=== PATIENT | female | born 1945 | race African-American/Black ===

== ENCOUNTER 2017-04-05 18:05 | Inpatient (IN) ==
[2017-04-05] MEDS ORDERED: cloNIDine 0.1 MG TABLET PO STA (19:44)
[2017-04-05] MEDS ORDERED: ALBUTEROL 2.5 MG/3 ML NEB RESP TX STA ×2 (19:44→21:32)
[2017-04-05] MEDS ORDERED: SODIUM CHLORIDE 0.9% 500 ML IV STA (19:44)
[2017-04-05] MEDS ORDERED: DEXAMETHASONE 4 MG/1 ML VIAL IM STA (19:44)
--- NOTE | 2017-04-05 20:01 | Emergency Department Note ---
Isabella Ohara Gwan, am scribing for, and in the presence of, Delon La MD 19:52. Abhinav Ohara Robert M, MD, personally performed the services described in this documentation, ascribed by Evelio Mason in my presence, and it is both accurate and complete . Arrival - Arrival Chief Complaint: Shortness of Breath Stated Complaint: asthma/wheeezing/SOB ED Nursing Triage Note: HX ASTHMA, COUGH ONSET SATURDAY, SOB WITH EXP WHEEZES BILATERALLY Mode of Arrival: Wheelchair Limitations: No Limitations Source: Patient, Old Records Reviewed, RN Notes Reviewed Time Seen by Provider: 04/05/17 19:41 - History of Present Illness HPI Narrative: Patient is a 71 y/o black female who presents to the ED for further evaluation of SOB, cough and wheezing with an onset today. Upon entry into the exam room, it is noted that the pt speaks in 2-3 word sentences. Patient has a PMHx of asthma and HTN. She stated that she was present at her Pulmologist office Dr. Ramos office today when her sxs became worse. She was then prompted to report to ED if she received no relief. Patient confirmed that her PCP is Dr. Pratt, that she has been compliant with BP medication and that her cough has an onset of 3 days ago. She denies any chest pain or having a fever. No other problems/ complaints reported in ED. Onset (ago): hour(s) Consistency: constant Severity: moderate Allergies/Adverse Reactions: Allergies Allergy/AdvReac Type Severity Reaction Status Date / Time doxycycline Allergy Mild ITCHING Verified 04/05/17 18:32 Home Medications: Home Medications Medication Instructions Recorded Confirmed Type Albuterol Sulfate [Proair 2 puff INH Q4HR 08/22/15 04/05/17 History Respiclick] Brimonidine/Timolol Oph Soln 1 drop BOTH EYES BID 08/22/15 04/05/17 History [Combigan] Buspirone HCl 15 mg PO BID 08/22/15 04/05/17 History Isosorbide Mononitrate [Isosorbide 30 mg PO BID 08/22/15 04/05/17 History Mononitrate ER] Montelukast Tab [Singulair Tab] 10 mg PO QPM 08/22/15 04/05/17 History cloNIDine HCl [Clonidine HCl] 0.1 mg PO BID 08/22/15 04/05/17 History hydroCHLOROthiazide 12.5 mg PO DAILY 08/22/15 04/05/17 History [Hydrochlorothiazide] Aspirin [Ecotrin] 81 mg PO DAILY 10/01/15 04/05/17 History Albuterol/Ipratropium Neb [Duoneb] 3 ml RESP TX RT Q6H nebulization 10/03/15 Rx solution Sertraline HCl 100 mg PO BID 10/21/15 04/05/17 History Quinapril [Accupril] 20 mg PO DAILY 06/24/16 04/05/17 History amLODIPine [Norvasc] 5 mg PO DAILY 06/24/16 04/05/17 History ACETAMIN/diphenhydrAMIN 500-25 1 tablet PO BEDTIME PRN 07/13/16 04/05/17 History [Tylenol PM] Acetaminophen 500 mg PO Q6H PRN 07/26/16 04/05/17 History diphenhydrAMINE HCl 25 mg PO BEDTIME 07/26/16 04/05/17 History [diphenhydrAMINE Tab] Dexlansoprazole [Dexilant] 60 mg PO DAILY 04/05/17 04/05/17 History Duloxetine HCl [Duloxetine] 30 mg PO BEDTIME 04/05/17 04/05/17 History Gabapentin [Gabapentin] 600 mg PO TID 04/05/17 04/05/17 History Levothyroxine Sodium 100 mcg PO QAM 04/05/17 04/05/17 History Oxycodone HCl/Acetaminophen 1 each PO BID PRN 04/05/17 04/05/17 History [Oxycodon-Acetaminophen 7.5-325] Review of System - Review of System 12 point system: reviewed and no additional remarkable complaints except as stated - Review of System Constitutional: Absent: chills, diaphoresis, fever Eyes: Absent: discharge, pain Head/Ears/Nose/Throat: Absent: earache Respiratory: Present: as per HPI, cough, wheezing, other (sob) Cardiovascular: Absent: chest pain, palpitations Gastrointestinal: Absent: abdominal pain, nausea, vomiting, diarrhea Genitourinary female: Absent: dysuria Musculoskeletal: Absent: arm pain, back pain, leg pain, neck pain Skin: Absent: rash Medical,Surgical,& Family Hx - Medical History Cardio: History of: Hypertension Psychological: History of: Anxiety Disorders HEENT: History of: Eye Problem (FLOATERS) Endocrine: History of: Thyroid Disorder Rheumatology: History of;: Rheumatoid Arthritis Respiratory: History of: Asthma Gastrointestinal: History of: GERD Musculoskeletal: History of: Back/Neck Problems, Herniated Disk - Surgical History Cardiac Surgeries: Sugical HX of: Cardiac Catheterization Abdominal Surgeries: Surgical HX of: Appendectomy, Cholecystectomy, Colonoscopy , EGD Reproductive Surgeries: Surgical HX of;: Hysterectomy Orthopedic Surgeries: Patient denies;: Orthopedic Surgery - Social History Smoking Status: Never smoker Exam Vital Signs: Vital Signs Temperature 98.1 F 04/05/17 18:27 Pulse Rate 70 04/05/17 18:27 Respiratory Rate 36 H 04/05/17 18:27 Blood Pressure 185/79 04/05/17 18:27 O2 Sat by Pulse Oximetry 96 04/05/17 18:27 - General General appearance: alert, in no apparent distress, other (patient speaks in 2- 3 word sentences) - Head Head exam: Present: atraumatic, normocephalic - Eye Eye exam: Present: normal appearance, PERRL, EOMI - ENT ENT exam: Present: normal exam, normal oropharynx, mucous membranes moist, TM's normal bilaterally, normal external ear exam - Neck Neck exam: Present: full ROM, trachea midline. Absent: tenderness - Chest Chest inspection: Present: symmetric chest wall rise. Absent: tenderness - Respiratory Respiratory exam: Present: wheezes (diffuse wheezes bilaterally), other ( patient speaks in 2-3 word sentences; no retraction noted) - Cardiovascular Cardiovascular exam: Present: regular rate, normal rhythm, normal heart sounds. Absent: murmur, rubs - Neurological Exam Neurological exam: Present: alert, oriented X3, CN II-XII intact. Absent: motor sensory deficit - Psychiatric Psychiatric exam: Present: normal affect, normal mood - Skin Skin exam: Present: warm, dry, intact, normal color Results - Labs CBC & BMP: 04/05/17 20:10 04/05/17 20:10 Lab Results: I have reviewed the patients labs - Diagnostic Findings Procedure: Chest x-ray: report reviewed by me Disposition Clinical Impression: Asthma with exacerbation, Uncontrolled hypertension Case discussed with: patient Disposition: Still a Patient Condition: Stable Time of Disposition: 21:01
[2017-04-05] MEDS ORDERED: DEXAMETHASONE 4 MG/1 ML VIAL ONE (20:02)
--- NOTE | 2017-04-05 20:05 | XRay Report ---
XR chest 1V portable Indication: Chest pain/shortness of breath. Comparison: Chest x-ray 07/30/2016. Technique: Portable AP chest was performed. Findings: The heart size appears within normal limits. The mediastinal contour suggests little change from comparison study. Minimally prominent pulmonary arteries within the central chest are suggested. Lungs are clear. Bones and soft tissues demonstrate no evidence of acute pathology. Impression: 1. Pulmonary arteries may be minimally prominent. Overall appearance of the chest suggests little change. No active process is demonstrated. 04/05/2017 7:57 PM PROCEDURE INTERPRETED AT [facility] DEPARTMENT OF RADIOLOGY Final Report Signed by: Dr. Rufus La
[2017-04-05] MEDS ORDERED: cloNIDine 0.1 MG TABLET ONE (20:23)
[2017-04-05 20:36] LABS: Basophils % 0.5 % (0.0-0.8); Eosinophils # 0.6 10*3/uL (0.0-0.87); Eosinophils % 7.2 % (0.00-10.9); Hematocrit 36.9 VOL% (35.7-47.0); Hemoglobin 11.2 GM/DL (12.0-16.0); Immature Granulocytes % 0.4 %; Immature Granulocytes Absolute 0.03 #; Lymphocytes # 1.4 10*3/uL (1.4-4.0); Lymphocytes % 17.4 % (21.3-54.2); Mean Corpuscular HGB Conc 30.4 GM/DL (32-36); Mean Corpuscular Hemoglobin 25 PG (27-34); Mean Corpuscular Volume 83.5 FL (87-102); Mean Platelet Volume 10.3 FL (9.6-12.0); Monocytes # 0.7 10*3/uL (0.11-0.8); Monocytes % 8.7 % (1.7-12.7); Neutrophils # 5.4 10*3/uL (1.4-7.4); Neutrophils % 65.8 % (38.7-73.9); Platelet Count 311 T/CUMM (130-400); Red Blood Count 4.42 MC/CUMM (3.8-5.5); Red Cell Distribution Width 15.2 % (9.3-17.3); White Blood Count 8.2 T/CUMM (4-12)
[2017-04-05 20:43] LABS: Calcium 9.1 MG/DL (8.5-10.1); Magnesium 2.2 MG/DL (1.8-2.4); Osmolality,Calculated 280.3 MOS/KG (273-304); Potassium 4.2 MMOL/L (3.5-5.1)
--- NOTE | 2017-04-05 22:01 | Hospitalist History & Physical ---
Assessment and Plan (1) Asthma with exacerbation Status: Acute Assessment and plan: Ongoing for several days with marked dyspnea but is continuous Continue steroids with prednisone as she can take p.o. Scheduled albuterol nebulizer every 4 hours, albuterol MDI every 4 hours to be given in between nebulized treatments as needed No indication for antibiotics, chest x-ray is clear and she has no fever Continue home Symbicort and Singulair Monitor on pulse oximetry and telemetry Current Visit: Yes (2) Hypothyroidism Status: Acute Assessment and plan: Continue home levothyroxine Current Visit: Yes (3) Arthritis Status: Acute Assessment and plan: Continue home Percocet Current Visit: Yes (4) GERD without esophagitis Status: Acute Assessment and plan: Continue home Dexilant Current Visit: No (5) Depression Status: Acute Assessment and plan: Continue home Zoloft, BuSpar, Cymbalta Current Visit: No (6) Uncontrolled hypertension Status: Acute Assessment and plan: Requires a lot of medications at home: HCTZ, clonidine, Norvasc, quinapril, ISMN and she reports compliance with all these medications although she has not yet taken her evening doses Continue home medications, hydralazine IV as needed for spikes in blood pressure Expect that her relative hypertension is secondary to the asthma exacerbation and anxiety Current Visit: Yes History of Present Illness Chief complaint: Shortness of breath History of present illness: Ms. Recinos is a 71 year old female with history of asthma, hypertension, depression, GERD, hypothyroidism the presented with a chief complaint of shortness of breath. Onset sudden. Duration since Saturday. Associated with productive cough, wheezing. Shortness of breath worse with exertion, improved with her home albuterol inhaler. She presented for care today because her symptoms have been progressively worse. When she arrived in the [facility] emergency department she was markedly tachypneic and has improved with nebulizer and dexamethasone, she is gone from speaking 2 word sentences to fluid speech at this time. She endorses compliance of her Symbicort and hypertension meds which were reviewed. Her primary care provider is Dr. Carroll and her mechanical apprentice is Dr. Ramos, both of which she has seen recently. I have reviewed the workup performed in the emergency department including lab and imaging data. I discussed her case with emergency department providers. Home Medications Medication Instructions Recorded Confirmed Type Albuterol Sulfate [Proair 2 puff INH Q4HR 08/22/15 04/05/17 History Respiclick] Brimonidine/Timolol Oph Soln 1 drop BOTH EYES BID 08/22/15 04/05/17 History [Combigan] Buspirone HCl 15 mg PO BID 08/22/15 04/05/17 History Isosorbide Mononitrate [Isosorbide 30 mg PO BID 08/22/15 04/05/17 History Mononitrate ER] Montelukast Tab [Singulair Tab] 10 mg PO QPM 08/22/15 04/05/17 History cloNIDine HCl [Clonidine HCl] 0.1 mg PO BID 08/22/15 04/05/17 History hydroCHLOROthiazide 12.5 mg PO DAILY 08/22/15 04/05/17 History [Hydrochlorothiazide] Aspirin [Ecotrin] 81 mg PO DAILY 10/01/15 04/05/17 History Albuterol/Ipratropium Neb [Duoneb] 3 ml RESP TX RT Q6H nebulization 10/03/15 Rx solution Sertraline HCl 100 mg PO BID 10/21/15 04/05/17 History Quinapril [Accupril] 20 mg PO DAILY 06/24/16 04/05/17 History amLODIPine [Norvasc] 5 mg PO DAILY 06/24/16 04/05/17 History ACETAMIN/diphenhydrAMIN 500-25 1 tablet PO BEDTIME PRN 07/13/16 04/05/17 History [Tylenol PM] Acetaminophen 500 mg PO Q6H PRN 07/26/16 04/05/17 History diphenhydrAMINE HCl 25 mg PO BEDTIME 07/26/16 04/05/17 History [diphenhydrAMINE Tab] Dexlansoprazole [Dexilant] 60 mg PO DAILY 04/05/17 04/05/17 History Duloxetine HCl [Duloxetine] 30 mg PO BEDTIME 04/05/17 04/05/17 History Gabapentin [Gabapentin] 600 mg PO TID 04/05/17 04/05/17 History Levothyroxine Sodium 100 mcg PO QAM 04/05/17 04/05/17 History Oxycodone HCl/Acetaminophen 1 each PO BID PRN 04/05/17 04/05/17 History [Oxycodon-Acetaminophen 7.5-325] Allergies Allergy/AdvReac Type Severity Reaction Status Date / Time doxycycline Allergy Mild ITCHING Verified 04/05/17 18:32 Medical,Surgical,& Family Hx - Medical History Cardio: History of: Hypertension Psychological: History of: Anxiety Disorders HEENT: History of: Eye Problem (FLOATERS) Endocrine: History of: Thyroid Disorder Rheumatology: History of;: Rheumatoid Arthritis Respiratory: History of: Asthma Gastrointestinal: History of: GERD Musculoskeletal: History of: Back/Neck Problems, Herniated Disk - Surgical History Cardiac Surgeries: Sugical HX of: Cardiac Catheterization Abdominal Surgeries: Surgical HX of: Appendectomy, Cholecystectomy, Colonoscopy , EGD Reproductive Surgeries: Surgical HX of;: Hysterectomy Orthopedic Surgeries: Patient denies;: Orthopedic Surgery - Family History Family History: Reports;: Family Hypertension (Mother) - Social History Smoking Status: Never smoker Have you smoked in the last 12 months: No Frequency of Alcohol Use: None Type of Drug Use: None Marital Status: Single Lives With:: Alone Functional capacity: uses cane/walker (Arthritis knees) Review of systems: - Constitutional Constitutional: Absent: chills, fatigue, fever(s), night sweats, weight loss - EENT Eyes: Absent: blurry vision Ears: Absent: decreased hearing, ear pain Nose, mouth and throat: Present: nasal congestion, sore throat - Cardiovascular Cardiovascular: Present: Dyspnea on exertion, edema absent: chest pain at rest, chest pain with activity, orthopnea, palpitations - Respiratory Respiratory: Present: Productive cough, dyspnea, wheezing absent: Hemoptysis - Gastrointestinal Gastrointestinal: Absent: abdominal pain, constipation, diarrhea, dysphagia, hematemesis, hematochezia, melena, nausea, vomiting - Genitourinary Genitourinary: Absent: difficulty urinating, dysuria, hematuria - Musculoskeletal Musculoskeletal: Present: Arthritis in knees - Neurological Neurological: Absent: confusion, dizziness, focal weakness, headache(s), numbness, paresthesias, syncope - Psychiatric Psychiatric: Present: Depression, anxiety - Endocrine Endocrine: Absent: cold intolerance, heat intolerance, polydipsia, polyuria - Hematologic/Lymphatic Hematologic/Lymphatic: Absent: easy bleeding, easy bruising, lymphadenopathy Exam - Constitutional Vitals: Period Temp Pulse Resp BP Sys/Valencia Pulse Ox Last 24 Hr 98.1 F-98.1 F 60-70 17-36 185-185/79-79 96-100 General appearance: morbidly obese, other (Middle-aged -[place] female sitting up in stretcher, pleasant cooperative) Exam: - Eye Eye exam: Present: EOMI. Absent: conjunctival injection, scleral icterus Pupils: Present: IDA - ENT ENT exam: Present: normal external ear exam, normal oropharynx - Expanded ENT Exam Mouth exam: Present: moist - Neck Neck exam: Present: normal inspection. Absent: lymphadenopathy, thyromegaly - Respiratory Respiratory exam: Present: Diffuse expiratory wheezing. Absent: accessory muscle use, rales, rhonchi - Cardiovascular Cardiovascular exam: Present: regular rate and rhythm. Absent: diastolic murmur , systolic murmur - Expanded Cardiovascular Exam Peripheral pulses: 2+: posterior tibialis (L), posterior tibialis (R) - GI/Abdominal GI/Abdominal exam: Present: normal bowel sounds, soft. Absent: distended, hyperactive bowel sounds, hypoactive bowel sounds, organomegaly, tenderness, rebound - Extremities Exam Extremities exam: Present: Bilateral lower extremity pitting edema - Neurological Exam Neurological exam: Present: alert, oriented X3, CN II-XII intact. Absent: motor sensory deficit - Psychiatric Psychiatric exam: Present: normal affect - Skin Skin exam: Present: warm, dry. Absent: diaphoretic, rash Results - Labs CBC & BMP: 04/05/17 20:10 04/05/17 20:10 - Diagnostic Findings Procedure: Chest x-ray: report reviewed by me
[2017-04-06] MEDS ORDERED: hydrALAZINE 20 MG/1 ML VIAL IV PRN (00:04)
[2017-04-06] MEDS ORDERED: NON-FORMULARY MEDICATION (Albuterol Sulfate [Proair Respiclick] 2 PUFF) INH SCH (00:04)
[2017-04-06] MEDS ORDERED: predniSONE 20 MG TABLET PO ONE (00:04)
[2017-04-06] MEDS ORDERED: ACETAMINOPHEN 325 MG TABLET PO PRN (00:04)
[2017-04-06] MEDS ORDERED: guaiFENesin/DM ER 600-30 MG TABLET PO PRN (00:04)
[2017-04-06] MEDS: busPIRone 15 MG TABLET PO SCH ×3 (00:41→20:09)
[2017-04-06] MEDS: GABAPENTIN 300 MG CAPSULE PO SCH ×4 (00:41→20:08)
[2017-04-06] MEDS: ISOSORBIDE MONONITRATE 30 MG TABLET PO SCH ×3 (00:41→20:09)
[2017-04-06] MEDS: ENOXAPARIN 40 MG/0.4 ML SYRINGE SUBCUT SCH (01:02)
[2017-04-06] MEDS: DULoxetine 30 MG CAPSULE PO SCH ×2 (01:02→20:08)
[2017-04-06] MEDS: ALBUTEROL 2.5 MG/3 ML NEB RESP TX SCH ×7 (03:10→23:10)
[2017-04-06] MEDS: QUINAPRIL 20 MG TABLET PO SCH (09:21)
[2017-04-06] MEDS: BRIMONIDINE/TIMOLOL OPH SOLN 5 ML BOTTLE BOTH EYES SCH ×2 (09:22→20:09)
[2017-04-06] MEDS: LEVOTHYROXINE 100 MCG TABLET PO SCH (09:24)
[2017-04-06] MEDS: hydroCHLOROthiazide 12.5 MG CAPSULE PO SCH (09:24)
[2017-04-06] MEDS: amLODIPine 5 MG TABLET PO SCH (09:25)
[2017-04-06] MEDS: cloNIDine 0.1 MG TABLET PO SCH ×2 (09:25→20:08)
[2017-04-06] MEDS: predniSONE 20 MG TABLET PO SCH (09:26)
[2017-04-06] MEDS: PANTOPRAZOLE 40 MG TABLET PO SCH (09:27)
[2017-04-06] MEDS: SERTRALINE 100 MG TABLET PO SCH ×2 (09:31→20:09)
[2017-04-06] MEDS: BUDESONIDE/FORMOTEROL 160-4.5 INHALER 6 GM INH SCH ×2 (09:50→20:08)
[2017-04-06] MEDS: oxyCODONE/ACETAMINOPHEN 5-325 MG TABLET PO PRN ×2 (09:50→18:27)
--- NOTE | 2017-04-06 15:05 | Hospitalist Progress Note ---
Assessment and Plan (1) Status asthmaticus Status: Acute Assessment and plan: Patient is still was wheezing at this time but will continue beta agonist ipratropium bromide and systemic steroids. This possible association of lower respiratory infection most likely typical. Dissection was started yesterday we will continue. Current Visit: Yes Qualifiers: Asthma severity: severe persistent Qualified Code(s): J45.52 - Severe persistent asthma with status asthmaticus (2) Depression Status: Acute Assessment and plan: Patient is using Zoloft, BuSpar and Cymbalta at home. Those will continue in the hospital Current Visit: No Qualifiers: Depression Type: major depressive disorder Major depression recurrence: recurrent Active/Remission status: currently active Major depression episode severity: severe Psychotic features: without psychotic features Qualified Code(s): F33.2 - Major depressive disorder, recurrent severe without psychotic features (3) Uncontrolled hypertension Status: Acute Assessment and plan: Dramatically better today. Continue antihypertensives Current Visit: Yes (4) Hypothyroidism Status: Acute Current Visit: Yes (5) Arthritis Status: Acute Assessment and plan: Patient has been using Percocet and will continue today Current Visit: Yes (6) Chronic sinusitis Status: Acute Assessment and plan: Continue doxycycline patient will need addition of Zyrtec 10 mg daily and fluticasone nasal 1 spray to each nostril daily. Current Visit: Yes Hospitalist: Subjective Interval history: Patient has been seen interviewed and examined and chart has been reviewed. Admitted overnight with status asthmaticus. Also been complaining of a lot of sinus congestion suggesting possibility of environmental allergens causing her problems. Denies any fevers or chills at this time. She does have a cough occasionally. Patient was admitted initially because of suggestion of lower respiratory infection and they were unable to break her asthmatic attack. She still does have wheezing bilaterally Exam - Constitutional Vitals: Period Temp Pulse Resp BP Sys/Valencia Pulse Ox Last 24 Hr 97.7 F-98.6 F 55-82 14-18 127-149/60-99 95-100 General appearance: over weight - Head Head exam: Present: normocephalic, atraumatic - Eye Eye exam: Present: EOMI Pupils: Present: IDA - ENT ENT exam: Present: normal exam - Neck Neck exam: Present: normal inspection, other (No stridor) - Respiratory Respiratory exam: Present: other (Patient does have bilateral wheezing from mid to end expiration. There is some associated crackles especially in the left lower lung [place]) - Cardiovascular Cardiovascular exam: Present: regular rate and rhythm - GI/Abdominal GI/Abdominal exam: Present: normal bowel sounds, soft - Back Exam Back exam: Present: normal inspection - Neurological Exam Neurological exam: Present: alert, oriented X3, CN II-XII intact - Psychiatric Psychiatric exam: Present: normal affect, normal mood - Skin Skin exam: Present: normal color, warm, dry Results - Labs CBC & BMP: 04/05/17 20:10 04/05/17 20:10 Lab Results: I have reviewed the past 24 hour labs
[2017-04-06] MEDS ORDERED: CETIRIZINE 10 MG TABLET PO PRN (15:09)
[2017-04-06] MEDS: MONTELUKAST 10 MG TABLET PO SCH (20:09)
[2017-04-06] MEDS: TRAVOPROST 0.004% OPH SOLN 2.5 ML BOTTLE BOTH EYES SCH (20:09)
[2017-04-07] MEDS: ENOXAPARIN 40 MG/0.4 ML SYRINGE SUBCUT SCH (00:24)
[2017-04-07] MEDS: ALBUTEROL 2.5 MG/3 ML NEB RESP TX SCH ×5 (03:00→19:03)
[2017-04-07] MEDS: BUDESONIDE/FORMOTEROL 160-4.5 INHALER 6 GM INH SCH ×2 (09:11→20:12)
[2017-04-07] MEDS: QUINAPRIL 20 MG TABLET PO SCH (09:12)
[2017-04-07] MEDS: FLUTICASONE 50 MCG NASAL SPRAY 16 GM BOTTLE BOTH NARES SCH (09:12)
[2017-04-07] MEDS: predniSONE 20 MG TABLET PO SCH (09:13)
[2017-04-07] MEDS: cloNIDine 0.1 MG TABLET PO SCH ×2 (09:13→20:12)
[2017-04-07] MEDS: GABAPENTIN 300 MG CAPSULE PO SCH ×3 (09:13→20:11)
[2017-04-07] MEDS: SERTRALINE 100 MG TABLET PO SCH ×2 (09:14→20:12)
[2017-04-07] MEDS: PANTOPRAZOLE 40 MG TABLET PO SCH (09:14)
[2017-04-07] MEDS: LEVOTHYROXINE 100 MCG TABLET PO SCH (09:14)
[2017-04-07] MEDS: busPIRone 15 MG TABLET PO SCH ×2 (09:14→20:12)
[2017-04-07] MEDS: hydroCHLOROthiazide 12.5 MG CAPSULE PO SCH (09:14)
[2017-04-07] MEDS: ISOSORBIDE MONONITRATE 30 MG TABLET PO SCH ×2 (09:14→20:12)
[2017-04-07] MEDS: amLODIPine 5 MG TABLET PO SCH (09:14)
[2017-04-07] MEDS: BRIMONIDINE/TIMOLOL OPH SOLN 5 ML BOTTLE BOTH EYES SCH ×2 (09:15→20:12)
--- NOTE | 2017-04-07 11:51 | Hospitalist Progress Note ---
Assessment and Plan (1) Status asthmaticus Status: Acute Assessment and plan: Patient is still was wheezing at this time but will continue beta agonist ipratropium bromide and systemic steroids. This possible association of lower respiratory infection most likely typical. Dissection was started yesterday we will continue. Current Visit: Yes Qualifiers: Asthma severity: severe persistent Qualified Code(s): J45.52 - Severe persistent asthma with status asthmaticus (2) Depression Status: Acute Assessment and plan: Patient is using Zoloft, BuSpar and Cymbalta at home. Those will continue in the hospital Current Visit: No Qualifiers: Depression Type: major depressive disorder Major depression recurrence: recurrent Active/Remission status: currently active Major depression episode severity: severe Psychotic features: without psychotic features Qualified Code(s): F33.2 - Major depressive disorder, recurrent severe without psychotic features (3) Uncontrolled hypertension Status: Acute Assessment and plan: Dramatically better today. Continue antihypertensives Current Visit: Yes (4) Hypothyroidism Status: Acute Current Visit: Yes (5) Arthritis Status: Acute Assessment and plan: Patient has been using Percocet and will continue today Current Visit: Yes (6) Chronic sinusitis Status: Acute Assessment and plan: Continue doxycycline patient will need addition of Zyrtec 10 mg daily and fluticasone nasal 1 spray to each nostril daily. Current Visit: Yes Hospitalist: Subjective Interval history: Patient has been seen interviewed and examined and chart has been reviewed. There is complaint of dyspepsia area this morning. Patient is already on pantoprazole. This continues Maalox can be used for medication of his discomfort Admitted to the hospital With status asthmaticus and continues to have a wheezing mostly mid to end expiratory phase Exam - Constitutional Vitals: Period Temp Pulse Resp BP Sys/Valencia Pulse Ox Last 24 Hr 97.3 F-98.6 F 60-73 14-18 119-153/64-82 95-100 General appearance: over weight - Head Head exam: Present: normocephalic - Eye Eye exam: Present: EOMI Pupils: Present: IDA, normal accommodation - ENT ENT exam: Present: normal exam, normal oropharynx - Neck Neck exam: Present: normal inspection - Respiratory Respiratory exam: Present: clear to auscultation bilaterally - Cardiovascular Cardiovascular exam: Present: regular rate and rhythm - GI/Abdominal GI/Abdominal exam: Present: normal bowel sounds, soft - Extremities Exam Extremities exam: Present: full ROM - Back Exam Back exam: Present: normal inspection - Neurological Exam Neurological exam: Present: alert, oriented X3, CN II-XII intact - Psychiatric Psychiatric exam: Present: normal affect, normal mood - Skin Skin exam: Present: normal color, warm Results - Labs CBC & BMP: 04/05/17 20:10 04/05/17 20:10 Lab Results: I have reviewed the past 24 hour labs (Morning labs be drawn tomorrow)
[2017-04-07] MEDS: DULoxetine 30 MG CAPSULE PO SCH (20:12)
[2017-04-07] MEDS: MONTELUKAST 10 MG TABLET PO SCH (20:12)
[2017-04-07] MEDS: TRAVOPROST 0.004% OPH SOLN 2.5 ML BOTTLE BOTH EYES SCH (20:12)
[2017-04-08] MEDS: ALBUTEROL 2.5 MG/3 ML NEB RESP TX SCH ×3 (00:15→07:16)
[2017-04-08] MEDS: ENOXAPARIN 40 MG/0.4 ML SYRINGE SUBCUT SCH (00:32)
[2017-04-08] MEDS ORDERED: DOCUSATE SODIUM 100 MG CAPSULE PO PRN (02:23)
[2017-04-08 06:23] LABS: Basophils % 0.4 % (0.0-0.8); Eosinophils # 0.1 10*3/uL (0.0-0.87); Eosinophils % 0.7 % (0.00-10.9); Hematocrit 37.2 VOL% (35.7-47.0); Hemoglobin 11.5 GM/DL (12.0-16.0); Immature Granulocytes % 0.4 %; Immature Granulocytes Absolute 0.03 #; Lymphocytes # 1.7 10*3/uL (1.4-4.0); Lymphocytes % 20.8 % (21.3-54.2); Mean Corpuscular HGB Conc 30.9 GM/DL (32-36); Mean Corpuscular Hemoglobin 25 PG (27-34); Mean Corpuscular Volume 81.8 FL (87-102); Mean Platelet Volume 10.2 FL (9.6-12.0); Monocytes # 0.5 10*3/uL (0.11-0.8); Monocytes % 6.5 % (1.7-12.7); Neutrophils # 5.9 10*3/uL (1.4-7.4); Neutrophils % 71.2 % (38.7-73.9); Platelet Count 412 T/CUMM (130-400); Red Blood Count 4.55 MC/CUMM (3.8-5.5); Red Cell Distribution Width 15.4 % (9.3-17.3); White Blood Count 8.3 T/CUMM (4-12)
[2017-04-08 06:52] LABS: Calcium 9.5 MG/DL (8.5-10.1); Magnesium 2.2 MG/DL (1.8-2.4); Osmolality,Calculated 280.4 MOS/KG (273-304); Potassium 3.9 MMOL/L (3.5-5.1)
--- NOTE | 2017-04-08 07:19 | Physician Query Form ---
CLICK EDIT DOCUMENT TO SELECT QUERY ANSWER --> OK --> SIGN Jessica La RN, CCDS Certified Clinical It Applications Analyst W) [phone] (f) [phone] [email or web address]: Make your selection(s) from the choices in EACH section by typing an "x" and enter comments in the comment section. Please use your independent medical judgment in providing your response. This request does not imply that any particular answer is desired or expected. CLINICAL INDICATORS: (Providers should not edit this section) The medical record indicates that the patient was admitted with asthma exacerbation, Uncontrolled hypertension, 185/79 and "Requires a lot of medications at home: HCTZ, clonidine, Norvasc, quinapril, ISMN"; treated with a dose of IV Hydralazine. Note: Hypertensive crises can present as hypertensive urgency or hypertensive emergency. Clarify which, if any of the following, is a more accurate diagnosis reflecting the type and acuity of the documented hypertension: TYPE: ( ) Hypertensive Urgency ( ) Hypertensive Emergency ( ) Uncontrolled chronic hypertension at baseline (x ) Other, please specify: ( ) Clinically unable to determine COMMENTS:Accelerated hypertension Criteria Source - Up to Date (This topic last updated: Jan 18, 2016) HYPERTENSIVE URGENCY: Severe hypertension (usually a diastolic blood pressure above 120 mmHg) in asymptomatic patients is referred to as hypertensive urgency. There is no proven benefit from rapid reduction in blood pressure in asymptomatic patients who have no evidence of acute end-organ damage and are at little short-term risk. HYPERTENSIVE EMERGENCY: Severe hypertension (usually a diastolic blood pressure above 120 mmHg) with evidence of acute end-organ damage is defined as a hypertensive emergency. A hypertensive emergency can be life threatening and requires immediate treatment, usually with parenteral medications in a monitored setting. PLEASE ALSO DOCUMENT RESPONSE IN PROGRESS NOTES AND/OR DISCHARGE SUMMARY Use of terms such as suspected, likely, or probable (associated with a specific diagnosis that is being evaluated, monitored, or treated as if it exists) are acceptable and can be restated in the discharge summary if not ruled out. MTDD
[2017-04-08] MEDS ORDERED: ALUMINUM/MAGNES/SIMETH MAX STR 30 ML UDCUP PO PRN (08:47)
[2017-04-08] MEDS: predniSONE 20 MG TABLET PO SCH (09:23)
[2017-04-08] MEDS: busPIRone 15 MG TABLET PO SCH (09:24)
[2017-04-08] MEDS: amLODIPine 5 MG TABLET PO SCH (09:24)
[2017-04-08] MEDS: PANTOPRAZOLE 40 MG TABLET PO SCH (09:24)
[2017-04-08] MEDS: GABAPENTIN 300 MG CAPSULE PO SCH (09:24)
[2017-04-08] MEDS: cloNIDine 0.1 MG TABLET PO SCH (09:24)
[2017-04-08] MEDS: LEVOTHYROXINE 100 MCG TABLET PO SCH (09:24)
[2017-04-08] MEDS: ISOSORBIDE MONONITRATE 30 MG TABLET PO SCH (09:24)
[2017-04-08] MEDS: SERTRALINE 100 MG TABLET PO SCH (09:24)
[2017-04-08] MEDS: hydroCHLOROthiazide 12.5 MG CAPSULE PO SCH (09:25)
[2017-04-08] MEDS: BRIMONIDINE/TIMOLOL OPH SOLN 5 ML BOTTLE BOTH EYES SCH (09:25)
[2017-04-08] MEDS: QUINAPRIL 20 MG TABLET PO SCH (09:27)
[2017-04-08] MEDS: FLUTICASONE 50 MCG NASAL SPRAY 16 GM BOTTLE BOTH NARES SCH (09:27)
[2017-04-08] MEDS: BUDESONIDE/FORMOTEROL 160-4.5 INHALER 6 GM INH SCH (09:30)
--- NOTE | 2017-04-08 09:42 | Discharge Summary ---
<Randy Holley - Last Filed: 04/08/17 09:39> Diagnosis - Discharge Diagnosis (1) Status asthmaticus Status: Acute (2) Depression Status: Acute (3) Uncontrolled hypertension Status: Acute (4) Hypothyroidism Status: Acute (5) Arthritis Status: Acute (6) Chronic sinusitis Status: Acute Specialty Discharge - Follow Up or Referrals Follow up with: Juan Tuttle MD [Physician] - (follow upafter discharge ) Discharge Plan - Discharge Data Disposition: Disch To Home/Self Care Condition at Discharge: Stable Discharge Diet: heart healthy Activity: resume usual activities as tolerated Hygiene: no restrictions Weight Bearing at Discharge: full weight bearing Driving: no restrictions Contact your physician if you experience:: fever over 101, Shortness of breath - Discharge Medications New Budesonide/Formoterol 160-4.5 [Symbicort 160-4.5] 2 puff INH BID #1 inhaler Cetirizine Tab [ZyrTEC Tab] 10 mg PO DAILY PRN #30 tablet PRN Reason: Allergy Symptoms predniSONE TAB [PredniSONE] 20 mg PO BID #20 tablet Alum/Mag/Simeth Max Str Liquid [Mylanta Max Strength Liquid] 30 ml PO Q4H PRN #300 ml PRN Reason: Dyspepsia Fluticasone 50 Mcg Nasal Compton [Flonase Nasal Compton] 1 spray BOTH NARES DAILY #1 vial Continue Brimonidine/Timolol Oph Soln [Combigan] 1 drop BOTH EYES BID Albuterol Sulfate [Proair Respiclick] 2 puff INH Q4HR Montelukast Tab [Singulair Tab] 10 mg PO QPM Isosorbide Mononitrate [Isosorbide Mononitrate ER] 30 mg PO BID Buspirone HCl 15 mg PO BID cloNIDine HCl [Clonidine HCl] 0.1 mg PO BID hydroCHLOROthiazide [Hydrochlorothiazide] 12.5 mg PO DAILY Aspirin [Ecotrin] 81 mg PO DAILY Albuterol/Ipratropium Neb [Duoneb] 3 ml RESP TX RT Q6H nebulization solution Sertraline HCl 100 mg PO BID amLODIPine [Norvasc] 5 mg PO DAILY Quinapril [Accupril] 20 mg PO DAILY diphenhydrAMINE HCl [diphenhydrAMINE Tab] 25 mg PO BEDTIME Acetaminophen 500 mg PO Q6H PRN PRN Reason: Fever Oxycodone HCl/Acetaminophen [Oxycodon-Acetaminophen 7.5-325] 7.5 tablet PO BID PRN PRN Reason: Pain Levothyroxine Sodium 100 mcg PO QAM Gabapentin 600 mg PO TID Brimonidine/Timolol Oph Soln [Combigan] 1 drop BOTH EYES BID Gabapentin 300 mg PO TID Duloxetine HCl [Duloxetine] 30 mg PO BEDTIME Dexlansoprazole [Dexilant] 60 mg PO DAILY Baclofen 10 mg PO DAILY PRN PRN Reason: Muscle Spasm Travoprost 0.004% Oph Soln [Travatan Z] 1 drop BOTH EYES BEDTIME Discontinued ACETAMIN/diphenhydrAMIN 500-25 [Tylenol PM] 1 tablet PO BEDTIME PRN PRN Reason: Sleep - Follow Up or Referral Follow Up: Juan Tuttle MD [Physician] - (follow upafter discharge ) - Forms/Instructions Exam - Constitutional Vitals: Period Temp Pulse Resp BP Sys/Valencia Pulse Ox Last 24 Hr 97.7 F-98.3 F 61-77 16-18 143-165/71-87 95-100 General appearance: over weight - Head Head exam: Present: normocephalic, atraumatic - Eye Eye exam: Present: EOMI Pupils: Present: IDA - ENT ENT exam: Present: normal oropharynx - Neck Neck exam: Present: normal inspection - Respiratory Respiratory exam: Present: clear to auscultation bilaterally, other (No wheezing today) - Cardiovascular Cardiovascular exam: Present: regular rate and rhythm - GI/Abdominal GI/Abdominal exam: Present: normal bowel sounds, soft - Extremities Exam Extremities exam: Present: normal inspection, full ROM - Back Exam Back exam: Present: normal inspection - Neurological Exam Neurological exam: Present: alert, oriented X3, CN II-XII intact - Psychiatric Psychiatric exam: Present: normal affect, normal mood - Skin Skin exam: Present: normal color, warm, dry Discharge Results Labs on day of discharge: Labs from last 24 hours 04/08/17 04/08/17 05:57 05:57 WBC 8.3 RBC 4.55 Hgb 11.5 L Hct 37.2 MCV 81.8 L MCH 25 L MCHC 30.9 L RDW 15.4 Plt Count 412 H D MPV 10.2 Neut % (Auto) 71.2 Lymph % (Auto) 20.8 L Faulkner % (Auto) 6.5 Eos % (Auto) 0.7 Baso % (Auto) 0.4 Neut # (Auto) 5.9 Lymph # (Auto) 1.7 Faulkner # (Auto) 0.5 Eos # (Auto) 0.1 Baso # (Auto) 0.0 Immature Gran % 0.4 Nucleated RBC % 0.0 Immature Gran # 0.03 Nucleated RBCs # 0.00 Sodium 140 Potassium 3.9 Chloride 103 Carbon Dioxide 27 Anion Gap 13.9 BUN 18 Creatinine 0.90 GFR Calculation 95 BUN/Creatinine Ratio 20.00 Glucose 100 Calculated Osmolality 280.4 Calcium 9.5 Magnesium 2.2 DS: Provider Date of admission: 04/05/17 21:47 Primary care physician: Vasu Pratt MD Attending physician on admission: Hubert Henderson MD Discharging clinician: Randy Holley MD <Thais Saenz - Last Filed: 04/08/17 10:54> Hospital Course - Hospital Course Hospital Course: Ms. Castillo is a 71 y/o female with history of HTN and asthma. She was admitted 04/05/2017 with exacerbation of Asthma. She presented to the ER after being seen in her [employer] [place] office where she became worse. She has had 3 days of cough and increased wheezing with no relief from her regular medications. On arrival to the ER she could speak in two word sentences on arrival to ER. She was admitted to inpatient to the [facility]. She was started on Prednisone PO, Albuterol nebulize treatments every 4 hours and an MDI every 4 prn for breakthough wheezing between schedule treatments. She was placed on Telemetry and Oximetry. She has improved with her current medication regimen and is ready for discharge. She will be discharged with Symbicort 2 puffs BID, Prednisone 20mg BID x 10 days and Flonase 50 mcg daily both nares. She is to follow up with Dr. Doan 1-2 weeks after discharge.
[2017-04-08 11:38] VITALS: BP 162/88
[2017-04-08] MEDS ORDERED: predniSONE 20 MG TABLET PO SCH (21:00)
== END 2017-04-08 12:00 | disposition home or self-care (01) | DRG 202 ==
LOC: N.ED 18:05 → SUATTDRO 21:47 → N.EDINP 21:47 → N.5E 23:15
PROVIDERS: ADMIT Student in an Organized Health Care Education/Training Program; ATTEND Internal Medicine Infectious Disease

== ENCOUNTER 2019-02-26 16:24 | Observation (INO) ==
[2019-02-26] MEDS ORDERED: NALOXONE 0.4 MG/ML VIAL ONE (16:55)
[2019-02-26] MEDS ORDERED: NALOXONE 0.4 MG/ML VIAL IV STA (17:03)
[2019-02-26] MEDS ORDERED: SODIUM CHLORIDE 0.9% 500 ML IV STA (17:03)
[2019-02-26] MEDS ORDERED: methylPREDNISolone SOD SUC 125 MG/2 ML VIAL IV STA (17:42)
[2019-02-26] MEDS ORDERED: FUROSEMIDE 40 MG/4 ML VIAL IV STA (17:42)
[2019-02-26] MEDS ORDERED: ALBUTEROL/IPRATROPIUM 3 ML NEB RESP TX STA (17:42)
[2019-02-26 18:43] LABS: Basophils % 0.4 % (0.0-0.8); Eosinophils # 0.4 10*3/uL (0.0-0.87); Eosinophils % 6.9 % (0.00-10.9); Hematocrit 31.2 VOL% (35.7-47.0); Immature Granulocytes % 0.4 %; Immature Granulocytes Absolute 0.02 #; Lymphocytes % 19.6 % (21.3-54.2); Mean Corpuscular HGB Conc 28.8 GM/DL (32-36); Mean Corpuscular Hemoglobin 24 PG (27-34); Mean Corpuscular Volume 84.3 FL (87-102); Mean Platelet Volume 10.5 FL (9.6-12.0); Monocytes # 0.5 10*3/uL (0.11-0.8); Monocytes % 10.4 % (1.7-12.7); Neutrophils # 3.2 10*3/uL (1.4-7.4); Neutrophils % 62.3 % (38.7-73.9); Platelet Count 273 T/CUMM (130-400); Red Cell Distribution Width 15.5 % (9.3-17.3); White Blood Count 5.2 T/CUMM (4-12)
[2019-02-26 18:51] LABS: Alanine Aminotransferase 19 U/L (13-56); Albumin 3.3 G/DL (3.4-5.0); Alkaline Phosphatase 110 U/L (45-117); Aspartate Amino Transferase 17 U/L (0-37); Blood Urea Nitrogen 12 MG/DL (7-18); Calcium 8.8 MG/DL (8.5-10.1); Glucose 114 MG/DL (74-106); Potassium 3.1 MMOL/L (3.5-5.1); Sodium 143 MMOL/L (136-145); Total Protein 7.3 G/DL (6.4-8.3)
[2019-02-26 19:10] LABS: Apearance,Urine CLEAR (Clear); Bilirubin,Urine Negative (Negative); Blood, Urine Negative (Negative); Glucose,Urine (UA) Negative (Negative); Ketones,Urine Negative (Negative); Nitrite,Urine Negative (Negative); Protein,Urine Negative; RBC,Urine 2 /HPF (0-4); Squamous Epithelial Cell,Urine Occasional /HPF (0-10); Urine Color Straw (Yellow); Urine Specific Gravity 1.005 (1.001-1.035); Urine Urobilinogen < 2.0 EU/DL (0.2-1.0); WBC,Urine <1 /HPF (0-6)
[2019-02-26 19:16] LABS: Barbiturates Screen,Urine Negative (Negative); Benzodiazepines Screen,Urine Negative (Negative); Cannabinoid Screen,Urine Negative (Negative); Opiate Screen,Urine Positive (Negative); Phencyclidine Screen,Urine Negative (Negative)
[2019-02-26 19:40] LABS: Hypochromasia 2+; Microcytosis 1+; Polychromasia Few
[2019-02-26 19:41] LABS: Platelet Estimate Normal
[2019-02-26] MEDS ORDERED: ONDANSETRON 4 MG/2 ML VIAL IV PRN (21:15)
[2019-02-26] MEDS ORDERED: PROMETHAZINE 25 MG/1 ML VIAL IM PRN (21:15)
[2019-02-26] MEDS ORDERED: FLUTICASONE 50 MCG NASAL SPRAY 16 GM BOTTLE BOTH NARES PRN (21:19)
[2019-02-26] MEDS ORDERED: FEXOFENADINE 180 MG TABLET PO PRN (21:19)
[2019-02-26] MEDS ORDERED: ENOXAPARIN 40 MG/0.4 ML SYRINGE SUBCUT SCH (21:30)
[2019-02-26] MEDS: busPIRone 15 MG TABLET PO SCH (23:37)
[2019-02-26] MEDS: SERTRALINE 100 MG TABLET PO SCH (23:38)
[2019-02-26] MEDS: PANTOPRAZOLE 40 MG TABLET PO SCH (23:38)
[2019-02-26] MEDS: ISOSORBIDE MONONITRATE 30 MG TABLET PO SCH (23:38)
[2019-02-26] MEDS: GABAPENTIN 600 MG TABLET PO SCH (23:38)
[2019-02-27] MEDS: SODIUM CHLORIDE 0.9% 1,000 ML IV SCH ×2 (00:06→11:16)
[2019-02-27] MEDS: POTASSIUM CHLORIDE RIDER 10 MEQ in PREMIX 1 EACH IV SCH ×3 (00:07→03:25)
[2019-02-27] MEDS: ALBUTEROL/IPRATROPIUM 3 ML NEB RESP TX SCH ×2 (00:20→08:14)
[2019-02-27] MEDS ORDERED: LEVOTHYROXINE 112 MCG TABLET PO SCH (06:00)
[2019-02-27 07:54] VITALS: BP 130/86
[2019-02-27] MEDS ORDERED: hydroCHLOROthiazide 12.5 MG CAPSULE PO SCH (08:00)
[2019-02-27] MEDS: GABAPENTIN 600 MG TABLET PO SCH (08:48)
[2019-02-27] MEDS: busPIRone 15 MG TABLET PO SCH (08:49)
[2019-02-27] MEDS: SERTRALINE 100 MG TABLET PO SCH (08:49)
[2019-02-27] MEDS: ISOSORBIDE MONONITRATE 30 MG TABLET PO SCH (08:49)
[2019-02-27] MEDS: PANTOPRAZOLE 40 MG TABLET PO SCH (08:49)
[2019-02-27] MEDS ORDERED: amLODIPine 5 MG TABLET PO SCH (09:00)
[2019-02-27] MEDS ORDERED: BUDESONIDE/FORMOTEROL 160-4.5 INHALER 6 GM INH SCH (09:00)
[2019-02-27] MEDS ORDERED: BRIMONIDINE/TIMOLOL OPH SOLN 5 ML BOTTLE BOTH EYES SCH (09:00)
[2019-02-27 10:01] LABS: Calcium 8.9 MG/DL (8.5-10.1); Osmolality,Calculated 282.3 MOS/KG (273-304); Potassium 3.2 MMOL/L (3.5-5.1)
[2019-02-27] MEDS ORDERED: TRAVOPROST 0.004% OPH SOLN 2.5 ML BOTTLE BOTH EYES SCH (21:00)
== END 2019-02-27 13:55 | disposition home or self-care (01) ==
LOC: EDUNIT# → N.ED 16:24 → N.EDINP 16:24 → SUATTDRO 21:15 → N.5E 21:41
PROVIDERS: ADMIT Internal Medicine; ATTEND Internal Medicine Nephrology

== ENCOUNTER 2019-07-26 19:42 | Observation (INO) ==
[2019-07-26] MEDS ORDERED: ALBUTEROL/IPRATROPIUM 3 ML NEB RESP TX STA (20:28)
[2019-07-27] MEDS ORDERED: ASPIRIN 325 MG TABLET PO STA (00:44)
[2019-07-27] MEDS ORDERED: ALBUTEROL/IPRATROPIUM 3 ML NEB RESP TX STA (00:44)
[2019-07-27] MEDS ORDERED: methylPREDNISolone SOD SUC 125 MG/2 ML VIAL IV STA (01:02)
[2019-07-27 01:38] LABS: Basophils % 0.6 % (0.0-0.8); Eosinophils # 0.6 10*3/uL (0.0-0.87); Eosinophils % 9.5 % (0.00-10.9); Hematocrit 35.5 VOL% (35.7-47.0); Hemoglobin 10.6 GM/DL (12.0-16.0); Immature Granulocytes % 0.3 %; Immature Granulocytes Absolute 0.02 #; Lymphocytes # 1.1 10*3/uL (1.4-4.0); Lymphocytes % 17.3 % (21.3-54.2); Mean Corpuscular HGB Conc 29.9 GM/DL (32-36); Mean Corpuscular Volume 84.5 FL (87-102); Mean Platelet Volume 11.2 FL (9.6-12.0); Monocytes % 8.3 % (1.7-12.7); Platelet Count 282 T/CUMM (130-400); Red Cell Distribution Width 15.4 % (9.3-17.3); White Blood Count 6.5 T/CUMM (4-12)
[2019-07-27 01:56] LABS: Albumin 3.5 G/DL (3.4-5.0); Bilirubin,Total 0.4 MG/DL (0.2-1.0); Calcium 9.2 MG/DL (8.5-10.1); Osmolality,Calculated 279.3 MOS/KG (273-304); Total Protein 8.2 G/DL (6.4-8.3)
[2019-07-27] MEDS ORDERED: ONDANSETRON 4 MG/2 ML VIAL IV PRN (06:49)
[2019-07-27] MEDS ORDERED: ALBUTEROL 2.5 MG/3 ML NEB RESP TX PRN (06:49)
[2019-07-27] MEDS ORDERED: DOCUSATE SODIUM 100 MG CAPSULE PO PRN (06:49)
[2019-07-27] MEDS: ALBUTEROL 2.5 MG/3 ML NEB RESP TX SCH ×5 (07:23→23:31)
[2019-07-27] MEDS: methylPREDNISolone SOD SUC 125 MG/2 ML VIAL IV SCH ×2 (08:59→15:03)
[2019-07-27] MEDS: ENOXAPARIN 40 MG/0.4 ML SYRINGE SUBCUT SCH (08:59)
[2019-07-27] MEDS ORDERED: FLUTICASONE 50 MCG NASAL SPRAY 16 GM BOTTLE BOTH NARES PRN (11:20)
[2019-07-27] MEDS ORDERED: traZODone 50 MG TABLET PO PRN (11:20)
[2019-07-27] MEDS: ACETAMINOPHEN 325 MG TABLET PO PRN ×2 (11:29→23:56)
[2019-07-27] MEDS: amLODIPine 5 MG TABLET PO SCH (11:31)
[2019-07-27] MEDS: cloNIDine 0.1 MG TABLET PO SCH ×2 (11:31→21:46)
[2019-07-27] MEDS: GABAPENTIN 300 MG CAPSULE PO SCH ×2 (15:03→21:45)
[2019-07-27] MEDS ORDERED: ZALEPLON 5 MG CAPSULE PO PRN (16:32)
[2019-07-27] MEDS ORDERED: TRAVOPROST 0.004% OPH SOLN 2.5 ML BOTTLE BOTH EYES SCH (21:00)
[2019-07-27] MEDS: busPIRone 15 MG TABLET PO SCH (21:45)
[2019-07-27] MEDS: BACLOFEN 10 MG TABLET PO SCH (21:46)
[2019-07-27] MEDS: ISOSORBIDE MONONITRATE 30 MG TABLET PO SCH (21:46)
[2019-07-27] MEDS: PANTOPRAZOLE 40 MG TABLET PO SCH (21:46)
[2019-07-27] MEDS: BUDESONIDE/FORMOTEROL 160-4.5 INHALER 6 GM INH SCH (21:48)
[2019-07-27] MEDS: SERTRALINE 100 MG TABLET PO SCH (23:59)
[2019-07-28] MEDS ORDERED: methylPREDNISolone SOD SUC 125 MG/2 ML VIAL IV SCH (02:00)
[2019-07-28] MEDS: ALBUTEROL 2.5 MG/3 ML NEB RESP TX SCH ×3 (03:32→12:51)
[2019-07-28 06:11] LABS: Basophils % 0.1 % (0.0-0.8); Hemoglobin 10.5 GM/DL (12.0-16.0); Immature Granulocytes % 0.5 %; Immature Granulocytes Absolute 0.04 #; Lymphocytes # 0.5 10*3/uL (1.4-4.0); Lymphocytes % 6.6 % (21.3-54.2); Mean Corpuscular Volume 83.7 FL (87-102); Mean Platelet Volume 10.9 FL (9.6-12.0); Monocytes % 2.8 % (1.7-12.7); Platelet Count 342 T/CUMM (130-400); Red Blood Count 4.18 MC/CUMM (3.8-5.5); Red Cell Distribution Width 15.2 % (9.3-17.3); White Blood Count 8.1 T/CUMM (4-12)
[2019-07-28 06:17] LABS: Calcium 9.3 MG/DL (8.5-10.1); Osmolality,Calculated 279.7 MOS/KG (273-304)
[2019-07-28] MEDS ORDERED: LEVOTHYROXINE 112 MCG TABLET PO SCH (06:30)
[2019-07-28] MEDS: PANTOPRAZOLE 40 MG TABLET PO SCH (08:56)
[2019-07-28] MEDS: ISOSORBIDE MONONITRATE 30 MG TABLET PO SCH (08:56)
[2019-07-28] MEDS: busPIRone 15 MG TABLET PO SCH (08:56)
[2019-07-28] MEDS: amLODIPine 5 MG TABLET PO SCH (08:56)
[2019-07-28] MEDS: SERTRALINE 100 MG TABLET PO SCH (08:56)
[2019-07-28] MEDS: BACLOFEN 10 MG TABLET PO SCH (08:56)
[2019-07-28] MEDS: cloNIDine 0.1 MG TABLET PO SCH (08:56)
[2019-07-28] MEDS: ENOXAPARIN 40 MG/0.4 ML SYRINGE SUBCUT SCH (08:57)
[2019-07-28] MEDS ORDERED: BRIMONIDINE/TIMOLOL OPH SOLN 5 ML BOTTLE BOTH EYES SCH (09:00)
[2019-07-28] MEDS: GABAPENTIN 300 MG CAPSULE PO SCH (09:04)
[2019-07-28] MEDS: BUDESONIDE/FORMOTEROL 160-4.5 INHALER 6 GM INH SCH (09:11)
[2019-07-28 12:05] VITALS: BP 147/90
== END 2019-07-28 12:27 | disposition home health service (06) ==
LOC: N.EDINP 19:42 → N.ED 19:42 → N.5E 07-27 05:27
PROVIDERS: ADMIT Internal Medicine; ATTEND Internal Medicine

== ENCOUNTER 2020-04-27 07:52 | Inpatient (IN) ==
[2020-04-27] MEDS ORDERED: ASPIRIN CHEW 81 MG TABLET PO STA (08:08)
[2020-04-27] MEDS ORDERED: methylPREDNISolone SOD SUC 125 MG/2 ML VIAL IV STA (08:08)
[2020-04-27] MEDS ORDERED: ALBUTEROL/IPRATROPIUM 3 ML NEB RESP TX STA (08:08)
[2020-04-27] MEDS ORDERED: PANTOPRAZOLE 40 MG VIAL IV STA (08:16)
[2020-04-27 08:23] LABS: Allen Test Positive; Pt O2 Delivery Device CPAP
[2020-04-27 08:24] LABS: ABG Base Excess -1.1 MMOL/L (-2.5-2.5); ABG HCO3 23.1 MMOL/L (20-26); ABG Oxygen Saturation 86.8 % (95-100); ABG PH 7.414 (7.35-7.45); ABG PO2 52.6 MM HG (80-95); ABG TCO2 24.3 MMOL/L (23-27)
[2020-04-27 08:35] LABS: Basophils # 0.1 10*3/uL (0.0-0.2); Basophils % 0.5 % (0.0-0.8); Eosinophils # 0.2 10*3/uL (0.0-0.87); Hematocrit 40.4 VOL% (35.7-47.0); Hemoglobin 12.4 GM/DL (12.0-16.0); Immature Granulocytes % 0.2 %; Immature Granulocytes Absolute 0.02 #; Lymphocytes # 1.2 10*3/uL (1.4-4.0); Lymphocytes % 12.7 % (21.3-54.2); Mean Corpuscular HGB Conc 30.7 GM/DL (32-36); Mean Corpuscular Volume 83.3 FL (87-102); Mean Platelet Volume 10.6 FL (9.6-12.0); Monocytes % 6.4 % (1.7-12.7); Neutrophils % 78.2 % (38.7-73.9); Platelet Count 242 T/CUMM (130-400); Red Blood Count 4.85 MC/CUMM (3.8-5.5); Red Cell Distribution Width 15.3 % (9.3-17.3); White Blood Count 9.6 T/CUMM (4-12)
[2020-04-27] MEDS ORDERED: cefTRIAXone 1,000 MG in SODIUM CHLORIDE 0.9% 100 ML IV STA (08:53)
[2020-04-27] MEDS ORDERED: SODIUM CHLORIDE 0.9% 1,000 ML IV STA (08:56)
[2020-04-27 09:08] LABS: Albumin 3.4 G/DL (3.4-5.0); Bilirubin,Total 0.6 MG/DL (0.2-1.0); Calcium 9.3 MG/DL (8.5-10.1); Osmolality,Calculated 276.7 MOS/KG (273-304); Total Protein 8.5 G/DL (6.4-8.3)
[2020-04-27 09:09] LABS: PT Patient Result 10.7 SECS (9.8-11.9); Partial Thromboplastin Time 23.6 SECS (23.9-33.8)
[2020-04-27] MEDS ORDERED: KETOROLAC 30 MG/1 ML VIAL IV STA (10:59)
[2020-04-27] MEDS ORDERED: ACETAMINOPHEN 500 MG TABLET PO STA (10:59)
[2020-04-27 11:43] LABS: Apearance,Urine Slightly Hazy (Clear); Bilirubin,Urine Negative (Negative); Blood, Urine Negative (Negative); Glucose,Urine (UA) Negative (Negative); Hyaline Casts,Urine 27 /LPF (0-3); Ketones,Urine 20 mg/dL (Negative); Mucus,Urine Many /LPF (Occasional); Nitrite,Urine Negative (Negative); Protein,Urine 30 MG/DL; RBC,Urine <1 /HPF (0-4); Squamous Epithelial Cell,Urine Occasional /HPF (0-10); Urine Color Amber (Yellow); Urine Specific Gravity 1.025 (1.001-1.035); Urine Urobilinogen < 2.0 EU/DL (0.2-1.0); WBC,Urine 1 /HPF (0-6)
[2020-04-27 11:46] LABS: Barbiturates Screen,Urine Negative (Negative); Benzodiazepines Screen,Urine Positive (Negative); Cannabinoid Screen,Urine Negative (Negative); Opiate Screen,Urine Negative (Negative); Phencyclidine Screen,Urine Negative (Negative)
[2020-04-27] MEDS ORDERED: ENOXAPARIN 100 MG/ML SYRINGE SUBCUT STA (11:58)
[2020-04-27] MEDS ORDERED: AZITHROMYCIN INJ 500 MG in SODIUM CHLORIDE 0.9% 250 ML IV STA (12:08)
[2020-04-27] MEDS ORDERED: LACTATED RINGERS 1,000 ML IV ONE (12:37)
[2020-04-27] MEDS ORDERED: MEROPENEM 500 MG in SODIUM CHLORIDE 0.9% 100 ML IV SCH (13:00)
[2020-04-27] MEDS: LACTATED RINGERS 1,000 ML IV SCH ×3 (13:02→21:51)
[2020-04-27] MEDS ORDERED: LOPERAMIDE 2 MG CAPSULE PO PRN (16:28)
[2020-04-27] MEDS ORDERED: ONDANSETRON 4 MG/2 ML VIAL IV PRN (16:28)
[2020-04-27] MEDS ORDERED: MAGNESIUM HYDROXIDE SUSP 30 ML UDCUP PO PRN (16:28)
[2020-04-27] MEDS ORDERED: ALUMINUM/MAGNES/SIMETH MAX STR 30 ML UDCUP PO PRN (16:28)
[2020-04-27] MEDS: MEROPENEM 500 MG in SODIUM CHLORIDE 0.9% 100 ML IV SCH (17:30)
[2020-04-27] MEDS: HEPARIN DRIP 25,000 UNITS/500 ML PREMIX IV SCH (17:42)
[2020-04-27] MEDS: TRAVOPROST 0.004% OPH SOLN 2.5 ML BOTTLE BOTH EYES SCH (21:14)
[2020-04-27] MEDS: SERTRALINE 100 MG TABLET PO SCH (21:14)
[2020-04-27] MEDS: ISOSORBIDE MONONITRATE 30 MG TABLET PO SCH (21:14)
[2020-04-27] MEDS: cloNIDine 0.1 MG TABLET PO SCH (22:04)
[2020-04-28] MEDS: MEROPENEM 500 MG in SODIUM CHLORIDE 0.9% 100 ML IV SCH ×4 (00:11→17:24)
[2020-04-28] MEDS: ALBUTEROL 2.5 MG/3 ML NEB RESP TX SCH ×4 (00:24→22:24)
[2020-04-28] MEDS: LACTATED RINGERS 1,000 ML IV SCH ×3 (01:46→09:25)
[2020-04-28 04:39] LABS: ABG Base Excess 1.3 MMOL/L (-2.5-2.5); ABG HCO3 25.5 MMOL/L (20-26); ABG Oxygen Saturation 97.8 % (95-100); ABG PCO2 37.4 MM HG (35-48); ABG PH 7.438 (7.35-7.45); ABG PO2 90.8 MM HG (80-95); ABG TCO2 22.6 MMOL/L (23-27); Allen Test Positive
[2020-04-28 05:56] LABS: Basophils % 0.2 % (0.0-0.8); Eosinophils % 0.3 % (0.00-10.9); Hematocrit 37.6 VOL% (35.7-47.0); Hemoglobin 11.3 GM/DL (12.0-16.0); Immature Granulocytes % 0.3 %; Immature Granulocytes Absolute 0.03 #; Lymphocytes # 1.1 10*3/uL (1.4-4.0); Lymphocytes % 10.9 % (21.3-54.2); Mean Corpuscular HGB Conc 30.1 GM/DL (32-36); Mean Corpuscular Volume 84.1 FL (87-102); Mean Platelet Volume 10.9 FL (9.6-12.0); Monocytes % 7.1 % (1.7-12.7); Neutrophils % 81.2 % (38.7-73.9); Platelet Count 253 T/CUMM (130-400); Red Blood Count 4.47 MC/CUMM (3.8-5.5); Red Cell Distribution Width 15.2 % (9.3-17.3); White Blood Count 9.6 T/CUMM (4-12)
[2020-04-28 06:04] LABS: INR 1.1; PT Patient Result 11.5 SECS (9.8-11.9)
[2020-04-28] MEDS: LEVOTHYROXINE 112 MCG TABLET PO SCH (06:27)
[2020-04-28 06:30] LABS: Albumin 2.9 G/DL (3.4-5.0); Bilirubin,Total 0.7 MG/DL (0.2-1.0); Osmolality,Calculated 269.2 MOS/KG (273-304); Total Protein 7.6 G/DL (6.4-8.3)
[2020-04-28 06:46] LABS: Troponin I 0.932 NG/ML (0.00-0.045)
[2020-04-28] MEDS: KETOROLAC 0.5% OPH SOLN 5 ML BOTTLE BOTH EYES SCH (08:00)
[2020-04-28] MEDS: ISOSORBIDE MONONITRATE 30 MG TABLET PO SCH ×2 (08:01→20:38)
[2020-04-28] MEDS: AZITHROMYCIN 250 MG TABLET PO SCH (08:01)
[2020-04-28] MEDS: SERTRALINE 100 MG TABLET PO SCH ×2 (08:01→20:38)
[2020-04-28] MEDS: cloNIDine 0.1 MG TABLET PO SCH ×2 (08:01→20:38)
[2020-04-28] MEDS: PANTOPRAZOLE 40 MG TABLET PO SCH (08:01)
[2020-04-28] MEDS: HEPARIN DRIP 25,000 UNITS/500 ML PREMIX IV SCH (08:02)
[2020-04-28] MEDS: BRIMONIDINE/TIMOLOL OPH SOLN 5 ML BOTTLE BOTH EYES SCH (08:06)
[2020-04-28] MEDS: ENOXAPARIN 120 MG/0.8 ML SYRINGE SUBCUT SCH ×2 (09:24→20:36)
[2020-04-28] MEDS: POTASSIUM CHLORIDE 20 MEQ TABLET PO SCH ×3 (11:10→17:30)
[2020-04-28] MEDS ORDERED: ZALEPLON 5 MG CAPSULE PO PRN (13:07)
[2020-04-28] MEDS: guaiFENesin 200 MG/10 ML UDCUP PO PRN ×2 (13:33→20:50)
[2020-04-28] MEDS: ALUMINUM/MAGNES/SIMETH MAX STR 30 ML UDCUP PO PRN (14:42)
[2020-04-28] MEDS: risperiDONE 1 MG TABLET PO SCH (20:38)
[2020-04-28] MEDS: TRAVOPROST 0.004% OPH SOLN 2.5 ML BOTTLE BOTH EYES SCH (20:39)
[2020-04-29] MEDS: MEROPENEM 500 MG in SODIUM CHLORIDE 0.9% 100 ML IV SCH ×2 (00:34→06:04)
[2020-04-29] MEDS: ALBUTEROL 2.5 MG/3 ML NEB RESP TX SCH ×3 (02:16→14:43)
[2020-04-29] MEDS: LEVOTHYROXINE 112 MCG TABLET PO SCH (06:04)
[2020-04-29 06:14] LABS: Albumin 2.5 G/DL (3.4-5.0); Bilirubin,Total 0.4 MG/DL (0.2-1.0); Calcium 8.7 MG/DL (8.5-10.1); Osmolality,Calculated 273.7 MOS/KG (273-304); Total Protein 6.8 G/DL (6.4-8.3)
[2020-04-29 07:20] LABS: Basophils % 0.3 % (0.0-0.8); Eosinophils # 0.5 10*3/uL (0.0-0.87); Hematocrit 34.6 VOL% (35.7-47.0); Hemoglobin 10.5 GM/DL (12.0-16.0); Immature Granulocytes % 0.4 %; Immature Granulocytes Absolute 0.04 #; Lymphocytes % 10.6 % (21.3-54.2); Mean Corpuscular HGB Conc 30.3 GM/DL (32-36); Mean Corpuscular Volume 83.2 FL (87-102); Mean Platelet Volume 11.1 FL (9.6-12.0); Monocytes % 7.9 % (1.7-12.7); Neutrophils % 75.8 % (38.7-73.9); Platelet Count 237 T/CUMM (130-400); Red Blood Count 4.16 MC/CUMM (3.8-5.5); Red Cell Distribution Width 15.2 % (9.3-17.3)
[2020-04-29] MEDS: KETOROLAC 0.5% OPH SOLN 5 ML BOTTLE BOTH EYES SCH (09:45)
[2020-04-29] MEDS: ENOXAPARIN 120 MG/0.8 ML SYRINGE SUBCUT SCH (09:49)
[2020-04-29] MEDS: BRIMONIDINE/TIMOLOL OPH SOLN 5 ML BOTTLE BOTH EYES SCH (09:50)
[2020-04-29] MEDS: risperiDONE 1 MG TABLET PO SCH ×2 (09:51→21:44)
[2020-04-29] MEDS: amLODIPine 10 MG TABLET PO SCH (09:51)
[2020-04-29] MEDS: AZITHROMYCIN 250 MG TABLET PO SCH (09:51)
[2020-04-29] MEDS: cloNIDine 0.1 MG TABLET PO SCH ×2 (09:52→21:44)
[2020-04-29] MEDS: SERTRALINE 100 MG TABLET PO SCH ×2 (09:52→21:44)
[2020-04-29] MEDS: PANTOPRAZOLE 40 MG TABLET PO SCH (09:52)
[2020-04-29] MEDS: ISOSORBIDE MONONITRATE 30 MG TABLET PO SCH ×2 (09:52→21:44)
[2020-04-29] MEDS: cefTRIAXone 1,000 MG in SYRINGE 1 EACH IV SCH (14:54)
[2020-04-29] MEDS: APIXABAN 5 MG TABLET PO SCH (21:44)
[2020-04-29] MEDS: TRAVOPROST 0.004% OPH SOLN 2.5 ML BOTTLE BOTH EYES SCH (21:45)
[2020-04-30] MEDS: ALBUTEROL 2.5 MG/3 ML NEB RESP TX SCH ×4 (00:35→20:10)
[2020-04-30 05:40] LABS: Basophils % 0.4 % (0.0-0.8); Eosinophils # 0.2 10*3/uL (0.0-0.87); Eosinophils % 3.2 % (0.00-10.9); Hemoglobin 9.2 GM/DL (12.0-16.0); Immature Granulocytes % 0.5 %; Immature Granulocytes Absolute 0.04 #; Mean Corpuscular HGB Conc 29.7 GM/DL (32-36); Mean Corpuscular Volume 85.2 FL (87-102); Mean Platelet Volume 10.9 FL (9.6-12.0); Monocytes % 8.6 % (1.7-12.7); Neutrophils % 74.3 % (38.7-73.9); Platelet Count 218 T/CUMM (130-400); Red Blood Count 3.64 MC/CUMM (3.8-5.5); Red Cell Distribution Width 15.2 % (9.3-17.3); White Blood Count 7.6 T/CUMM (4-12)
[2020-04-30 06:13] LABS: Albumin 2.2 G/DL (3.4-5.0); Calcium 8.3 MG/DL (8.5-10.1); Osmolality,Calculated 276.5 MOS/KG (273-304); Total Protein 6.2 G/DL (6.4-8.3)
[2020-04-30] MEDS: LEVOTHYROXINE 112 MCG TABLET PO SCH (06:23)
[2020-04-30] MEDS: KETOROLAC 0.5% OPH SOLN 5 ML BOTTLE BOTH EYES SCH (08:34)
[2020-04-30] MEDS: BRIMONIDINE/TIMOLOL OPH SOLN 5 ML BOTTLE BOTH EYES SCH (08:35)
[2020-04-30] MEDS: APIXABAN 5 MG TABLET PO SCH ×2 (08:35→20:38)
[2020-04-30] MEDS: ISOSORBIDE MONONITRATE 30 MG TABLET PO SCH ×2 (08:36→20:38)
[2020-04-30] MEDS: cloNIDine 0.1 MG TABLET PO SCH ×2 (08:36→20:38)
[2020-04-30] MEDS: AZITHROMYCIN 250 MG TABLET PO SCH (08:36)
[2020-04-30] MEDS: SERTRALINE 100 MG TABLET PO SCH ×2 (08:36→20:39)
[2020-04-30] MEDS: amLODIPine 10 MG TABLET PO SCH (08:36)
[2020-04-30] MEDS: PANTOPRAZOLE 40 MG TABLET PO SCH ×2 (08:37→20:39)
[2020-04-30] MEDS: risperiDONE 1 MG TABLET PO SCH ×2 (08:37→20:39)
[2020-04-30 08:53] LABS: Basophils % 0.4 % (0.0-0.8); Eosinophils # 0.3 10*3/uL (0.0-0.87); Eosinophils % 3.8 % (0.00-10.9); Hematocrit 31.7 VOL% (35.7-47.0); Hemoglobin 9.4 GM/DL (12.0-16.0); Immature Granulocytes % 0.4 %; Immature Granulocytes Absolute 0.03 #; Lymphocytes # 1.2 10*3/uL (1.4-4.0); Mean Corpuscular HGB Conc 29.7 GM/DL (32-36); Mean Corpuscular Volume 84.8 FL (87-102); Mean Platelet Volume 10.5 FL (9.6-12.0); Monocytes % 7.4 % (1.7-12.7); Platelet Count 198 T/CUMM (130-400); Red Blood Count 3.74 MC/CUMM (3.8-5.5); Red Cell Distribution Width 15.3 % (9.3-17.3); White Blood Count 7.4 T/CUMM (4-12)
[2020-04-30 08:58] LABS: Folate 8.5 NG/ML (5.4-24.0); Vitamin B12 557 PG/ML (211-911)
[2020-04-30 09:00] LABS: % Iron Saturation 3.8 % (18-50)
[2020-04-30] MEDS: ALUMINUM/MAGNES/SIMETH MAX STR 30 ML UDCUP PO PRN (09:26)
[2020-04-30 10:05] LABS: Sedimentation Rate-Westergren 68 MM/HR (0-30)
[2020-04-30] MEDS: cefTRIAXone 1,000 MG in SYRINGE 1 EACH IV SCH (12:08)
[2020-04-30] MEDS: diphenhydrAMINE CAP 25 MG CAPSULE PO PRN ×2 (15:49→22:23)
[2020-04-30] MEDS: TRAVOPROST 0.004% OPH SOLN 2.5 ML BOTTLE BOTH EYES SCH (20:41)
[2020-04-30] MEDS: guaiFENesin 200 MG/10 ML UDCUP PO PRN (22:24)
[2020-05-01] MEDS: LEVOTHYROXINE 112 MCG TABLET PO SCH (06:32)
[2020-05-01 06:40] LABS: Albumin 2.2 G/DL (3.4-5.0); Bilirubin,Total 0.7 MG/DL (0.2-1.0); Calcium 8.3 MG/DL (8.5-10.1); Osmolality,Calculated 275.5 MOS/KG (273-304); Total Protein 6.2 G/DL (6.4-8.3)
[2020-05-01] MEDS: ALBUTEROL 2.5 MG/3 ML NEB RESP TX SCH (07:18)
[2020-05-01 07:19] LABS: Basophils % 0.4 % (0.0-0.8); Eosinophils # 0.4 10*3/uL (0.0-0.87); Eosinophils % 5.4 % (0.00-10.9); Hematocrit 32.1 VOL% (35.7-47.0); Immature Granulocytes % 0.3 %; Immature Granulocytes Absolute 0.02 #; Lymphocytes # 0.9 10*3/uL (1.4-4.0); Lymphocytes % 12.7 % (21.3-54.2); Mean Corpuscular HGB Conc 29.9 GM/DL (32-36); Mean Corpuscular Volume 84.5 FL (87-102); Mean Platelet Volume 11.3 FL (9.6-12.0); Monocytes % 9.6 % (1.7-12.7); Neutrophils % 71.6 % (38.7-73.9); Platelet Count 230 T/CUMM (130-400); Red Cell Distribution Width 15.3 % (9.3-17.3); White Blood Count 7.1 T/CUMM (4-12)
[2020-05-01 07:23] LABS: Hemoglobin 9.6 GM/DL (12.0-16.0)
[2020-05-01 07:50] LABS: Basophils % 0.3 % (0.0-0.8); Eosinophils # 0.4 10*3/uL (0.0-0.87); Eosinophils % 5.2 % (0.00-10.9); Hematocrit 35.5 VOL% (35.7-47.0); Hemoglobin 10.5 GM/DL (12.0-16.0); Immature Granulocytes % 0.4 %; Immature Granulocytes Absolute 0.03 #; Lymphocytes # 0.9 10*3/uL (1.4-4.0); Lymphocytes % 12.3 % (21.3-54.2); Mean Corpuscular HGB Conc 29.6 GM/DL (32-36); Mean Platelet Volume 10.7 FL (9.6-12.0); Monocytes % 8.5 % (1.7-12.7); Neutrophils % 73.3 % (38.7-73.9); Platelet Count 248 T/CUMM (130-400); Red Blood Count 4.13 MC/CUMM (3.8-5.5); Red Cell Distribution Width 15.1 % (9.3-17.3); White Blood Count 7.4 T/CUMM (4-12)
[2020-05-01 08:01] VITALS: BP 187/73
[2020-05-01] MEDS: cloNIDine 0.1 MG TABLET PO SCH (08:34)
[2020-05-01] MEDS: PANTOPRAZOLE 40 MG TABLET PO SCH (08:35)
[2020-05-01] MEDS: APIXABAN 5 MG TABLET PO SCH (08:35)
[2020-05-01] MEDS: risperiDONE 1 MG TABLET PO SCH (08:35)
[2020-05-01] MEDS: SERTRALINE 100 MG TABLET PO SCH (08:36)
[2020-05-01] MEDS: ISOSORBIDE MONONITRATE 30 MG TABLET PO SCH (08:36)
[2020-05-01] MEDS: AZITHROMYCIN 250 MG TABLET PO SCH (08:36)
[2020-05-01] MEDS: amLODIPine 10 MG TABLET PO SCH (08:36)
[2020-05-01] MEDS: BRIMONIDINE/TIMOLOL OPH SOLN 5 ML BOTTLE BOTH EYES SCH (08:37)
[2020-05-01] MEDS: KETOROLAC 0.5% OPH SOLN 5 ML BOTTLE BOTH EYES SCH (08:37)
[2020-05-01] MEDS: cefTRIAXone 1,000 MG in SYRINGE 1 EACH IV SCH (11:34)
[2020-05-01] MEDS ORDERED: lisinopriL 10 MG TABLET PO SCH (21:00)
[2020-05-02 10:33] LABS: Hemoglobin A1 (Alkaline) 97.9 % (96.5-98.5); Hemoglobin A2 (Alkaline) 2.1 % (1.5-3.5)
== END 2020-05-01 15:45 | disposition home health service (06) | DRG 175 ==
LOC: EDBD → EDUNIT# → N.ED 07:52 → N.EDINP 12:37 → SUATTDRO 12:37 → N.ICU 16:29 → N.4E 04-28 17:31
PROVIDERS: ADMIT Internal Medicine; ATTEND Internal Medicine

== ENCOUNTER 2020-06-17 18:37 | Inpatient (IN) ==
[2020-06-17] MEDS ORDERED: ONDANSETRON 4 MG/2 ML VIAL IV STA (21:11)
[2020-06-17] MEDS ORDERED: SODIUM CHLORIDE 0.9% 500 ML IV STA (21:11)
[2020-06-17 21:20] LABS: Basophils % 0.2 % (0.0-0.8); Eosinophils % 0.2 % (0.00-10.9); Hematocrit 36.9 VOL% (35.7-47.0); Hemoglobin 11.4 GM/DL (12.0-16.0); Immature Granulocytes % 0.5 %; Immature Granulocytes Absolute 0.03 #; Lymphocytes # 0.8 10*3/uL (1.4-4.0); Lymphocytes % 13.6 % (21.3-54.2); Mean Corpuscular HGB Conc 30.9 GM/DL (32-36); Mean Corpuscular Volume 80.2 FL (87-102); Mean Platelet Volume 10.8 FL (9.6-12.0); Monocytes % 7.4 % (1.7-12.7); Neutrophils % 78.1 % (38.7-73.9); Platelet Count 362 T/CUMM (130-400); Red Cell Distribution Width 15.1 % (9.3-17.3); White Blood Count 6.1 T/CUMM (4-12)
[2020-06-17 21:36] LABS: PT Patient Result 11.1 SECS (9.8-11.9)
[2020-06-17 21:38] LABS: Albumin 2.7 G/DL (3.4-5.0); Bilirubin,Total 0.5 MG/DL (0.2-1.0); Calcium 8.6 MG/DL (8.5-10.1); Osmolality,Calculated 268.1 MOS/KG (273-304); Total Protein 8.1 G/DL (6.4-8.3)
[2020-06-17 22:06] LABS: Apearance,Urine CLEAR (Clear); Bacteria,Urine Occasional /HPF (Few); Bilirubin,Urine Negative (Negative); Blood, Urine Negative (Negative); Glucose,Urine (UA) Negative (Negative); Hyaline Casts,Urine 1 /LPF (0-3); Ketones,Urine 5 mg/dL (Negative); Mucus,Urine Occasional /LPF (Occasional); Nitrite,Urine Negative (Negative); Protein,Urine 100 MG/DL; RBC,Urine 10 /HPF (0-4); Squamous Epithelial Cell,Urine Occasional /HPF (0-10); Urine Color Amber (Yellow); Urine Specific Gravity 1.025 (1.001-1.035); WBC,Urine <1 /HPF (0-6)
[2020-06-17 22:24] LABS: Barbiturates Screen,Urine Negative (Negative); Benzodiazepines Screen,Urine Positive (Negative); Cannabinoid Screen,Urine Negative (Negative); Opiate Screen,Urine Positive (Negative); Phencyclidine Screen,Urine Negative (Negative)
[2020-06-17] MEDS ORDERED: POTASSIUM CHLORIDE RIDER 20 MEQ in PREMIX 1 EACH IV STA ×2 (22:27→22:36)
[2020-06-17] MEDS ORDERED: FUROSEMIDE 40 MG/4 ML VIAL IV STA (22:30)
[2020-06-17] MEDS ORDERED: PIPERACILLIN/TAZOBACTAM 3,375 MG in SODIUM CHLORIDE 0.9% 100 ML IV STA (22:31)
[2020-06-17] MEDS ORDERED: methylPREDNISolone SOD SUC 125 MG/2 ML VIAL IV STA (22:31)
[2020-06-17] MEDS ORDERED: ALBUTEROL/IPRATROPIUM 3 ML NEB RESP TX STA (22:34)
[2020-06-17] MEDS ORDERED: DEXTROSE 50% 25 GM/50 ML VIAL IV PRN (22:58)
[2020-06-17] MEDS ORDERED: GLUCAGON 1 MG VIAL IM PRN (22:58)
[2020-06-17] MEDS ORDERED: MAGNESIUM SULF RIDER 2 GM in PREMIX 1 EACH IV PRN (23:09)
[2020-06-17] MEDS ORDERED: MAGNESIUM SULF RIDER 4 GM in PREMIX 1 EACH IV PRN (23:09)
[2020-06-18] MEDS: cloNIDine 0.1 MG TABLET PO SCH ×3 (02:00→21:48)
[2020-06-18] MEDS: AZITHROMYCIN INJ 500 MG in SODIUM CHLORIDE 0.9% 250 ML IV SCH ×2 (02:17→23:10)
[2020-06-18] MEDS: APIXABAN 5 MG TABLET PO SCH ×3 (02:17→21:48)
[2020-06-18] MEDS: PANTOPRAZOLE 40 MG TABLET PO SCH ×3 (02:18→21:49)
[2020-06-18] MEDS: ZALEPLON 5 MG CAPSULE PO PRN (03:10)
[2020-06-18 07:17] LABS: Hematocrit 40.2 VOL% (35.7-47.0); Hemoglobin 12.2 GM/DL (12.0-16.0); Immature Granulocytes % 0.4 %; Immature Granulocytes Absolute 0.02 #; Lymphocytes # 0.5 10*3/uL (1.4-4.0); Lymphocytes % 9.4 % (21.3-54.2); Mean Corpuscular HGB Conc 30.3 GM/DL (32-36); Mean Platelet Volume 10.4 FL (9.6-12.0); Monocytes % 1.9 % (1.7-12.7); Neutrophils % 88.3 % (38.7-73.9); Platelet Count 384 T/CUMM (130-400); Red Blood Count 4.96 MC/CUMM (3.8-5.5); Red Cell Distribution Width 15.1 % (9.3-17.3); White Blood Count 5.2 T/CUMM (4-12)
[2020-06-18] MEDS: cefTRIAXone 1,000 MG in SYRINGE 1 EACH IV SCH (08:24)
[2020-06-18] MEDS: LEVOTHYROXINE 112 MCG TABLET PO SCH (08:26)
[2020-06-18] MEDS: FUROSEMIDE 20 MG/2 ML VIAL IV SCH ×2 (08:28→15:59)
[2020-06-18 08:42] LABS: Albumin 2.8 G/DL (3.4-5.0); Bilirubin,Total 0.4 MG/DL (0.2-1.0); Calcium 8.5 MG/DL (8.5-10.1); Ferritin 121.5 ng/ml (8-252); Osmolality,Calculated 272.1 MOS/KG (273-304); Total Protein 8.6 G/DL (6.4-8.3)
[2020-06-18] MEDS ORDERED: PANTOPRAZOLE 40 MG TABLET PO SCH (09:00)
[2020-06-18] MEDS: amLODIPine 5 MG TABLET PO SCH (09:25)
[2020-06-18] MEDS: ZINC SULFATE 220 MG CAPSULE PO SCH (09:25)
[2020-06-18] MEDS: GABAPENTIN 300 MG CAPSULE PO SCH ×3 (09:25→21:49)
[2020-06-18] MEDS: hydroCHLOROthiazide 12.5 MG CAPSULE PO SCH (09:25)
[2020-06-18] MEDS: BUDESONIDE/FORMOTEROL 160-4.5 INHALER 6 GM INH SCH ×2 (09:25→21:50)
[2020-06-18] MEDS: DEXAMETHASONE 4 MG/1 ML VIAL IV SCH (09:32)
[2020-06-18] MEDS: BACITRACIN OPH OINT 3.5 GM TUBE LEFT EYE SCH (21:50)
[2020-06-18] MEDS: AZITHROMYCIN 250 MG TABLET PO SCH (21:57)
[2020-06-18] MEDS: ACETAMINOPHEN 325 MG TABLET PO PRN (22:08)
[2020-06-19 05:43] LABS: Basophils % 0.1 % (0.0-0.8); Hemoglobin 10.8 GM/DL (12.0-16.0); Immature Granulocytes % 0.5 %; Immature Granulocytes Absolute 0.05 #; Lymphocytes # 0.9 10*3/uL (1.4-4.0); Lymphocytes % 8.9 % (21.3-54.2); Mean Corpuscular HGB Conc 30.9 GM/DL (32-36); Mean Corpuscular Volume 79.5 FL (87-102); Mean Platelet Volume 10.5 FL (9.6-12.0); Monocytes % 4.9 % (1.7-12.7); Neutrophils % 85.6 % (38.7-73.9); Platelet Count 401 T/CUMM (130-400); Red Cell Distribution Width 15.2 % (9.3-17.3); White Blood Count 10.2 T/CUMM (4-12)
[2020-06-19 06:02] LABS: Calcium 8.5 MG/DL (8.5-10.1); Osmolality,Calculated 278.7 MOS/KG (273-304)
[2020-06-19] MEDS: LEVOTHYROXINE 112 MCG TABLET PO SCH (06:18)
[2020-06-19] MEDS: POTASSIUM CHLORIDE 20 MEQ TABLET PO PRN ×4 (06:44→16:54)
[2020-06-19] MEDS ORDERED: hydrALAZINE 20 MG/1 ML VIAL IV PRN (07:11)
[2020-06-19] MEDS: APIXABAN 5 MG TABLET PO SCH ×2 (09:00→20:52)
[2020-06-19] MEDS: cloNIDine 0.1 MG TABLET PO SCH ×2 (09:00→20:52)
[2020-06-19] MEDS: hydroCHLOROthiazide 12.5 MG CAPSULE PO SCH (09:01)
[2020-06-19] MEDS: POTASSIUM CHLORIDE 20 MEQ TABLET PO SCH (09:02)
[2020-06-19] MEDS: GABAPENTIN 300 MG CAPSULE PO SCH ×3 (09:03→20:53)
[2020-06-19] MEDS: amLODIPine 5 MG TABLET PO SCH (09:05)
[2020-06-19] MEDS: BUDESONIDE/FORMOTEROL 160-4.5 INHALER 6 GM INH SCH ×2 (09:05→20:53)
[2020-06-19] MEDS: PANTOPRAZOLE 40 MG TABLET PO SCH ×2 (09:05→20:52)
[2020-06-19] MEDS: FUROSEMIDE 20 MG/2 ML VIAL IV SCH ×2 (10:06→16:53)
[2020-06-19] MEDS: cefTRIAXone 1,000 MG in SYRINGE 1 EACH IV SCH (10:07)
[2020-06-19] MEDS: DEXAMETHASONE 4 MG/1 ML VIAL IV SCH (10:07)
[2020-06-19] MEDS: ACETAMINOPHEN 325 MG TABLET PO PRN ×2 (10:10→23:56)
[2020-06-19] MEDS: ALPRAZolam 0.25 MG TABLET PO PRN (13:13)
[2020-06-19] MEDS: ALBUTEROL INHALER 18 GM INH SCH ×2 (13:59→18:11)
[2020-06-19] MEDS: AZITHROMYCIN 250 MG TABLET PO SCH (20:52)
[2020-06-19] MEDS: ZALEPLON 5 MG CAPSULE PO PRN (20:53)
[2020-06-19] MEDS: BACITRACIN OPH OINT 3.5 GM TUBE LEFT EYE SCH (20:54)
[2020-06-20] MEDS: ALBUTEROL INHALER 18 GM INH SCH ×4 (00:57→20:49)
[2020-06-20] MEDS: LEVOTHYROXINE 112 MCG TABLET PO SCH (06:03)
[2020-06-20] MEDS: ONDANSETRON 4 MG/2 ML VIAL IV PRN (06:05)
[2020-06-20] MEDS: ACETAMINOPHEN 325 MG TABLET PO PRN ×2 (06:11→10:22)
[2020-06-20 06:12] LABS: Basophils % 0.2 % (0.0-0.8); Eosinophils % 0.2 % (0.00-10.9); Hematocrit 35.3 VOL% (35.7-47.0); Hemoglobin 10.6 GM/DL (12.0-16.0); Immature Granulocytes % 0.9 %; Immature Granulocytes Absolute 0.12 #; Lymphocytes # 1.1 10*3/uL (1.4-4.0); Lymphocytes % 8.2 % (21.3-54.2); Mean Corpuscular Volume 81.3 FL (87-102); Monocytes % 5.4 % (1.7-12.7); Neutrophils % 85.1 % (38.7-73.9); Platelet Count 459 T/CUMM (130-400); Red Blood Count 4.34 MC/CUMM (3.8-5.5); Red Cell Distribution Width 15.4 % (9.3-17.3); White Blood Count 12.9 T/CUMM (4-12)
[2020-06-20 06:35] LABS: Calcium 8.6 MG/DL (8.5-10.1)
[2020-06-20 07:01] LABS: Ferritin 107.5 ng/ml (8-252)
[2020-06-20] MEDS: FUROSEMIDE 20 MG/2 ML VIAL IV SCH ×2 (09:17→18:26)
[2020-06-20] MEDS: POTASSIUM CHLORIDE 20 MEQ TABLET PO PRN (09:18)
[2020-06-20] MEDS: APIXABAN 5 MG TABLET PO SCH ×2 (09:18→20:49)
[2020-06-20] MEDS: PANTOPRAZOLE 40 MG TABLET PO SCH ×2 (09:18→20:49)
[2020-06-20] MEDS: cloNIDine 0.1 MG TABLET PO SCH ×2 (09:18→20:49)
[2020-06-20] MEDS: amLODIPine 5 MG TABLET PO SCH (09:18)
[2020-06-20] MEDS: GABAPENTIN 300 MG CAPSULE PO SCH ×2 (09:19→20:50)
[2020-06-20] MEDS: hydroCHLOROthiazide 12.5 MG CAPSULE PO SCH (09:19)
[2020-06-20] MEDS: ZINC SULFATE 220 MG CAPSULE PO SCH (09:19)
[2020-06-20] MEDS: DEXAMETHASONE 4 MG/1 ML VIAL IV SCH (09:19)
[2020-06-20] MEDS: POTASSIUM CHLORIDE 20 MEQ TABLET PO SCH (09:19)
[2020-06-20] MEDS: BUDESONIDE/FORMOTEROL 160-4.5 INHALER 6 GM INH SCH ×2 (09:19→20:50)
[2020-06-20] MEDS: cefTRIAXone 1,000 MG in SYRINGE 1 EACH IV SCH (09:20)
[2020-06-20 17:32] LABS: ABG Base Excess -0.4 MMOL/L (-2.5-2.5); ABG HCO3 24.1 MMOL/L (20-26); ABG PH 7.394 (7.35-7.45); ABG PO2 68.4 MM HG (80-95); ABG TCO2 22.1 MMOL/L (23-27); Allen Test Positive
[2020-06-20] MEDS: AZITHROMYCIN 250 MG TABLET PO SCH (20:49)
[2020-06-20] MEDS: BACITRACIN OPH OINT 3.5 GM TUBE LEFT EYE SCH (20:49)
[2020-06-21] MEDS: ALBUTEROL INHALER 18 GM INH SCH ×4 (01:21→18:28)
[2020-06-21] MEDS: ACETAMINOPHEN 325 MG TABLET PO PRN ×2 (01:38→10:24)
[2020-06-21] MEDS: LEVOTHYROXINE 112 MCG TABLET PO SCH (06:18)
[2020-06-21 06:39] LABS: Ferritin 116.8 ng/ml (8-252)
[2020-06-21] MEDS: FUROSEMIDE 40 MG/4 ML VIAL IV SCH ×2 (08:29→16:00)
[2020-06-21] MEDS: PANTOPRAZOLE 40 MG TABLET PO SCH ×2 (08:30→20:45)
[2020-06-21] MEDS: cloNIDine 0.1 MG TABLET PO SCH ×2 (08:30→20:45)
[2020-06-21] MEDS: POTASSIUM CHLORIDE 20 MEQ TABLET PO SCH (08:30)
[2020-06-21] MEDS: amLODIPine 5 MG TABLET PO SCH (08:31)
[2020-06-21] MEDS: hydroCHLOROthiazide 12.5 MG CAPSULE PO SCH (08:31)
[2020-06-21] MEDS: DEXAMETHASONE 4 MG/1 ML VIAL IV SCH (08:32)
[2020-06-21] MEDS: cefTRIAXone 1,000 MG in SYRINGE 1 EACH IV SCH (08:33)
[2020-06-21] MEDS: APIXABAN 5 MG TABLET PO SCH ×2 (08:36→20:45)
[2020-06-21] MEDS: BUDESONIDE/FORMOTEROL 160-4.5 INHALER 6 GM INH SCH ×2 (08:37→20:46)
[2020-06-21] MEDS: GABAPENTIN 300 MG CAPSULE PO SCH (10:40)
[2020-06-21] MEDS: POTASSIUM CHLORIDE 20 MEQ TABLET PO PRN ×3 (13:01→17:54)
[2020-06-21] MEDS: AZITHROMYCIN 250 MG TABLET PO SCH (20:45)
[2020-06-21] MEDS: BACITRACIN OPH OINT 3.5 GM TUBE LEFT EYE SCH (20:54)
[2020-06-21] MEDS: ZALEPLON 5 MG CAPSULE PO PRN (22:48)
[2020-06-22 00:26] LABS: Specimen Source THROAT
[2020-06-22] MEDS: ACETAMINOPHEN 325 MG TABLET PO PRN (01:12)
[2020-06-22] MEDS: ALBUTEROL INHALER 18 GM INH SCH ×4 (01:34→21:27)
[2020-06-22] MEDS: LEVOTHYROXINE 112 MCG TABLET PO SCH (06:44)
[2020-06-22 06:55] LABS: Ferritin 123.7 ng/ml (8-252)
[2020-06-22] MEDS: FUROSEMIDE 40 MG/4 ML VIAL IV SCH ×2 (09:01→16:50)
[2020-06-22] MEDS: BUDESONIDE/FORMOTEROL 160-4.5 INHALER 6 GM INH SCH ×2 (09:01→21:28)
[2020-06-22] MEDS: amLODIPine 5 MG TABLET PO SCH (09:02)
[2020-06-22] MEDS: PANTOPRAZOLE 40 MG TABLET PO SCH ×2 (09:02→21:22)
[2020-06-22] MEDS: cloNIDine 0.1 MG TABLET PO SCH ×2 (09:02→21:22)
[2020-06-22] MEDS: hydroCHLOROthiazide 12.5 MG CAPSULE PO SCH (09:02)
[2020-06-22] MEDS: POTASSIUM CHLORIDE 20 MEQ TABLET PO SCH (09:03)
[2020-06-22] MEDS: ZINC SULFATE 220 MG CAPSULE PO SCH (09:03)
[2020-06-22] MEDS: APIXABAN 5 MG TABLET PO SCH ×2 (09:03→21:22)
[2020-06-22] MEDS: cefTRIAXone 1,000 MG in SYRINGE 1 EACH IV SCH (09:04)
[2020-06-22] MEDS: DEXAMETHASONE 4 MG/1 ML VIAL IV SCH (09:04)
[2020-06-22] MEDS: GABAPENTIN 300 MG CAPSULE PO SCH ×2 (11:37→19:22)
[2020-06-22] MEDS: ALPRAZolam 0.25 MG TABLET PO PRN (21:23)
[2020-06-22] MEDS: BACITRACIN OPH OINT 3.5 GM TUBE LEFT EYE SCH (21:30)
[2020-06-23] MEDS: ALBUTEROL INHALER 18 GM INH SCH ×2 (01:24→05:51)
[2020-06-23 06:55] LABS: Ferritin 130.9 ng/ml (8-252)
[2020-06-23] MEDS: DEXAMETHASONE 4 MG/1 ML VIAL IV SCH (09:32)
[2020-06-23] MEDS: ALPRAZolam 0.25 MG TABLET PO PRN (09:36)
[2020-06-23] MEDS: FUROSEMIDE 40 MG/4 ML VIAL IV SCH (09:36)
[2020-06-23] MEDS: hydroCHLOROthiazide 12.5 MG CAPSULE PO SCH (09:36)
[2020-06-23] MEDS: BUDESONIDE/FORMOTEROL 160-4.5 INHALER 6 GM INH SCH (09:36)
[2020-06-23] MEDS: APIXABAN 5 MG TABLET PO SCH (09:36)
[2020-06-23] MEDS: POTASSIUM CHLORIDE 20 MEQ TABLET PO SCH (09:36)
[2020-06-23] MEDS: LEVOTHYROXINE 112 MCG TABLET PO SCH (09:36)
[2020-06-23] MEDS: PANTOPRAZOLE 40 MG TABLET PO SCH (09:36)
[2020-06-23] MEDS: ONDANSETRON 4 MG/2 ML VIAL IV PRN (09:36)
[2020-06-23] MEDS: cloNIDine 0.1 MG TABLET PO SCH (11:08)
[2020-06-23] MEDS: amLODIPine 5 MG TABLET PO SCH (11:10)
[2020-06-23 12:18] VITALS: BP 115/58
== END 2020-06-23 12:55 | disposition home health service (06) | DRG 177 ==
LOC: EDUNIT# → EDBD → N.ED 18:37 → SUATTDRO 22:58 → N.EDINP 22:58 → N.2E 06-18 20:32
PROVIDERS: ADMIT Internal Medicine; ATTEND Hospitalist

== ENCOUNTER 2022-08-24 06:23 | Inpatient (IN) ==
[2022-08-24] MEDS ORDERED: HYDROmorphone 1 MG/1 ML SYRINGE IV STA (06:42)
[2022-08-24] MEDS ORDERED: ONDANSETRON 4 MG/2 ML VIAL IV STA (06:42)
[2022-08-24 07:06] LABS: Basophils % 0.5 % (0.0-0.8); Eosinophils # 0.2 10*3/uL (0.0-0.87); Eosinophils % 2.8 % (0.00-10.9); Hematocrit 40.5 VOL% (35.7-47.0); Hemoglobin 12.4 GM/DL (12.0-16.0); Immature Granulocytes % 0.3 %; Immature Granulocytes Absolute 0.02 #; Lymphocytes # 1.3 10*3/uL (1.4-4.0); Lymphocytes % 19.8 % (21.3-54.2); Mean Corpuscular HGB Conc 30.6 GM/DL (32-36); Mean Corpuscular Volume 83.2 FL (87-102); Mean Platelet Volume 10.2 FL (9.6-12.0); Monocytes # 0.6 10*3/uL (0.11-0.8); Monocytes % 9.6 % (1.7-12.7); Platelet Count 392 T/CUMM (130-400); Red Blood Count 4.87 MC/CUMM (3.8-5.5); Red Cell Distribution Width 15.4 % (9.3-17.3); White Blood Count 6.5 T/CUMM (4-12)
[2022-08-24 07:27] LABS: Albumin 3.6 G/DL (3.4-5.0); Bilirubin,Total 0.5 MG/DL (0.20-1.00); Calcium 9.8 MG/DL (8.5-10.1); Potassium 3.7 MMOL/L (3.5-5.1); Total Protein 7.9 G/DL (6.4-8.2)
[2022-08-24] MEDS ORDERED: hydrALAZINE 20 MG/1 ML VIAL IV STA (08:04)
[2022-08-24] MEDS ORDERED: hydrALAZINE 20 MG/1 ML VIAL ONE (08:04)
[2022-08-24] MEDS ORDERED: amLODIPine 10 MG TABLET PO STA (10:35)
[2022-08-24] MEDS ORDERED: hydrALAZINE 20 MG/1 ML VIAL IV PRN (10:35)
[2022-08-24 10:37] LABS: Blood, Urine Negative (Negative); Glucose,Urine (UA) Negative (Negative); Ketones,Urine Negative (Negative); Mucus,Urine Occasional /LPF (Occasional); Nitrite,Urine Negative (Negative); Protein,Urine Negative (Negative); RBC,Urine 1 /HPF (0-4); Squamous Epithelial Cell,Urine Occasional /HPF (0-10); Urine Appearance Clear (Clear); Urine Color Yellow (Yellow); Urine Specific Gravity 1.015 (1.001-1.035); Urine pH 8.5 (4.5-8.0)
[2022-08-24 10:38] LABS: Bilirubin,Urine Negative (Negative); Urine Urobilinogen 0.2 eU/dL (<2.0)
[2022-08-24] MEDS ORDERED: ALBUTEROL 2.5 MG/3 ML NEB RESP TX PRN (10:40)
[2022-08-24] MEDS: PANTOPRAZOLE 40 MG TABLET PO SCH (11:11)
[2022-08-24] MEDS: GABAPENTIN 300 MG CAPSULE PO SCH ×2 (14:38→20:28)
[2022-08-24] MEDS: MONTELUKAST 10 MG TABLET PO SCH (20:28)
[2022-08-24] MEDS: risperiDONE 0.5 MG TABLET PO SCH (20:28)
[2022-08-24] MEDS: LATANOPROST 0.005% OPH SOLN 2.5 ML BOTTLE BOTH EYES SCH (20:28)
[2022-08-24] MEDS: cloNIDine 0.1 MG TABLET PO SCH (20:28)
[2022-08-24] MEDS: SERTRALINE 100 MG TABLET PO SCH (20:28)
[2022-08-25 05:12] LABS: Risk Ratio 2.05; Thyroid Stimulating Hormone 4.41 uIU/ml (0.358-3.74); VLDL Cholesterol 13.6 MG/DL
[2022-08-25] MEDS: LEVOTHYROXINE 125 MCG TABLET PO SCH ×2 (06:05→08:52)
[2022-08-25 08:13] LABS: Basophils % 0.7 % (0.0-0.8); Eosinophils # 0.3 10*3/uL (0.0-0.87); Eosinophils % 5.3 % (0.00-10.9); Hematocrit 41.5 VOL% (35.7-47.0); Hemoglobin 12.6 GM/DL (12.0-16.0); Immature Granulocytes % 0.2 %; Immature Granulocytes Absolute 0.01 #; Lymphocytes # 1.3 10*3/uL (1.4-4.0); Lymphocytes % 22.9 % (21.3-54.2); Mean Corpuscular HGB Conc 30.4 GM/DL (32-36); Mean Platelet Volume 9.7 FL (9.6-12.0); Monocytes # 0.6 10*3/uL (0.11-0.8); Monocytes % 10.5 % (1.7-12.7); Neutrophils % 60.4 % (38.7-73.9); Platelet Count 381 T/CUMM (130-400); Red Blood Count 4.94 MC/CUMM (3.8-5.5); Red Cell Distribution Width 15.6 % (9.3-17.3); White Blood Count 5.5 T/CUMM (4-12)
[2022-08-25 08:34] LABS: Albumin 3.3 G/DL (3.4-5.0); Bilirubin,Total 0.6 MG/DL (0.20-1.00); Calcium 9.4 MG/DL (8.5-10.1); Osmolality,Calculated 279.3 MOS/KG (273-304); Potassium 3.4 MMOL/L (3.5-5.1); Total Protein 7.9 G/DL (6.4-8.2)
[2022-08-25] MEDS: PANTOPRAZOLE 40 MG TABLET PO SCH (08:51)
[2022-08-25] MEDS: FLUTICASONE 50 MCG NASAL SPRAY 16 GM BOTTLE BOTH NARES SCH (08:51)
[2022-08-25] MEDS ORDERED: amLODIPine 5 MG TABLET PO SCH (09:00)
[2022-08-25] MEDS: DOCUSATE SODIUM 100 MG CAPSULE PO PRN (09:32)
[2022-08-25] MEDS: GABAPENTIN 300 MG CAPSULE PO SCH ×3 (09:32→20:50)
[2022-08-25] MEDS: POTASSIUM CHLORIDE 20 MEQ TABLET PO SCH (09:32)
[2022-08-25] MEDS: cloNIDine 0.1 MG TABLET PO SCH ×2 (09:32→20:50)
[2022-08-25] MEDS: SERTRALINE 100 MG TABLET PO SCH ×2 (09:32→20:50)
[2022-08-25] MEDS: risperiDONE 0.5 MG TABLET PO SCH ×2 (09:34→21:37)
[2022-08-25] MEDS: CARTEOLOL 1% OPH SOLN 5 ML BOTTLE BOTH EYES SCH (09:35)
[2022-08-25] MEDS ORDERED: amLODIPine 5 MG TABLET PO ONE (10:19)
[2022-08-25] MEDS ORDERED: SODIUM CHLORIDE 0.9% 500 ML IV ONE (19:00)
[2022-08-25] MEDS: MONTELUKAST 10 MG TABLET PO SCH (20:50)
[2022-08-25] MEDS: LATANOPROST 0.005% OPH SOLN 2.5 ML BOTTLE BOTH EYES SCH (21:37)
[2022-08-26 06:09] LABS: Basophils # 0.1 10*3/uL (0.0-0.2); Basophils % 0.9 % (0.0-0.8); Eosinophils # 0.3 10*3/uL (0.0-0.87); Eosinophils % 5.2 % (0.00-10.9); Hematocrit 35.8 VOL% (35.7-47.0); Hemoglobin 10.7 GM/DL (12.0-16.0); Immature Granulocytes % 0.5 %; Immature Granulocytes Absolute 0.03 #; Lymphocytes # 1.2 10*3/uL (1.4-4.0); Lymphocytes % 21.5 % (21.3-54.2); Mean Corpuscular HGB Conc 29.9 GM/DL (32-36); Mean Corpuscular Volume 86.7 FL (87-102); Mean Platelet Volume 10.1 FL (9.6-12.0); Monocytes # 0.6 10*3/uL (0.11-0.8); Monocytes % 11.5 % (1.7-12.7); Neutrophils % 60.4 % (38.7-73.9); Platelet Count 303 T/CUMM (130-400); Red Blood Count 4.13 MC/CUMM (3.8-5.5); Red Cell Distribution Width 15.9 % (9.3-17.3); White Blood Count 5.6 T/CUMM (4-12)
[2022-08-26] MEDS: LEVOTHYROXINE 125 MCG TABLET PO SCH (06:16)
[2022-08-26 06:46] LABS: Alanine Aminotransferase 18 U/L (13-56); Albumin 2.6 G/DL (3.4-5.0); Alkaline Phosphatase 84 U/L (45-117); Aspartate Amino Transferase 10 U/L (0-37); Bilirubin,Total < 0.39 MG/DL (0.20-1.00); Blood Urea Nitrogen 20 MG/DL (7-18); Calcium 8.6 MG/DL (8.5-10.1); Carbon Dioxide 23 MMOL/L (21-32); Chloride 113 MMOL/L (98-107); Glucose 122 MG/DL (74-106); Potassium 3.4 MMOL/L (3.5-5.1); Sodium 143 MMOL/L (136-145); Total Protein 6.5 G/DL (6.4-8.2)
[2022-08-26] MEDS ORDERED: POTASSIUM CHLORIDE 20 MEQ TABLET PO ONE (07:45)
[2022-08-26] MEDS: cloNIDine 0.1 MG TABLET PO SCH ×2 (08:12→21:05)
[2022-08-26] MEDS: FLUTICASONE 50 MCG NASAL SPRAY 16 GM BOTTLE BOTH NARES SCH (09:12)
[2022-08-26] MEDS: GABAPENTIN 300 MG CAPSULE PO SCH ×3 (09:12→21:03)
[2022-08-26] MEDS: POTASSIUM CHLORIDE 20 MEQ TABLET PO SCH (09:12)
[2022-08-26] MEDS: SERTRALINE 100 MG TABLET PO SCH ×2 (09:13→21:02)
[2022-08-26] MEDS: PANTOPRAZOLE 40 MG TABLET PO SCH (09:13)
[2022-08-26] MEDS: risperiDONE 0.5 MG TABLET PO SCH ×2 (09:13→21:03)
[2022-08-26] MEDS: CARTEOLOL 1% OPH SOLN 5 ML BOTTLE BOTH EYES SCH (09:13)
[2022-08-26] MEDS: amLODIPine 10 MG TABLET PO SCH (09:13)
[2022-08-26] MEDS ORDERED: diphenhydrAMINE CAP 25 MG CAPSULE PO ONE (17:56)
[2022-08-26] MEDS: DOCUSATE SODIUM 100 MG CAPSULE PO PRN (21:02)
[2022-08-26] MEDS: MONTELUKAST 10 MG TABLET PO SCH (21:02)
[2022-08-26] MEDS: LATANOPROST 0.005% OPH SOLN 2.5 ML BOTTLE BOTH EYES SCH (21:04)
[2022-08-27 05:50] LABS: Alanine Aminotransferase 19 U/L (13-56); Albumin 2.9 G/DL (3.4-5.0); Alkaline Phosphatase 94 U/L (45-117); Aspartate Amino Transferase 10 U/L (0-37); Bilirubin,Total < 0.39 MG/DL (0.20-1.00); Blood Urea Nitrogen 18 MG/DL (7-18); Calcium 9.3 MG/DL (8.5-10.1); Carbon Dioxide 22 MMOL/L (21-32); Chloride 111 MMOL/L (98-107); Glucose 97 MG/DL (74-106); Osmolality,Calculated 284.1 MOS/KG (273-304); Sodium 142 MMOL/L (136-145); Total Protein 7.4 G/DL (6.4-8.2)
[2022-08-27 06:04] LABS: Basophils % 0.5 % (0.0-0.8); Eosinophils # 0.3 10*3/uL (0.0-0.87); Eosinophils % 4.9 % (0.00-10.9); Hematocrit 37.1 VOL% (35.7-47.0); Hemoglobin 11.1 GM/DL (12.0-16.0); Immature Granulocytes % 0.5 %; Immature Granulocytes Absolute 0.03 #; Lymphocytes # 0.9 10*3/uL (1.4-4.0); Lymphocytes % 15.9 % (21.3-54.2); Mean Corpuscular HGB Conc 29.9 GM/DL (32-36); Mean Corpuscular Volume 87.1 FL (87-102); Mean Platelet Volume 10.4 FL (9.6-12.0); Monocytes # 0.5 10*3/uL (0.11-0.8); Monocytes % 8.8 % (1.7-12.7); Neutrophils % 69.4 % (38.7-73.9); Platelet Count 324 T/CUMM (130-400); Red Blood Count 4.26 MC/CUMM (3.8-5.5); Red Cell Distribution Width 16.1 % (9.3-17.3); White Blood Count 5.5 T/CUMM (4-12)
[2022-08-27] MEDS: LACTATED RINGERS 1,000 ML IV SCH (12:50)
[2022-08-27] MEDS ORDERED: LIDOCAINE 2% 5 ML VIAL ONE (13:14)
[2022-08-27] MEDS ORDERED: propofoL 200 MG/20 ML VIAL IV ONE (13:14)
[2022-08-27] MEDS ORDERED: MAGNESIUM HYDROXIDE SUSP 30 ML UDCUP PO ONE (15:33)
[2022-08-27] MEDS: LEVOTHYROXINE 125 MCG TABLET PO SCH (15:51)
[2022-08-27] MEDS: GABAPENTIN 300 MG CAPSULE PO SCH ×3 (15:51→21:59)
[2022-08-27] MEDS: risperiDONE 0.5 MG TABLET PO SCH ×2 (16:07→21:59)
[2022-08-27] MEDS: cloNIDine 0.1 MG TABLET PO SCH ×2 (16:07→21:58)
[2022-08-27] MEDS: POTASSIUM CHLORIDE 20 MEQ TABLET PO SCH (16:07)
[2022-08-27] MEDS: PANTOPRAZOLE 40 MG TABLET PO SCH (16:08)
[2022-08-27] MEDS: amLODIPine 10 MG TABLET PO SCH (16:08)
[2022-08-27] MEDS: SERTRALINE 100 MG TABLET PO SCH ×2 (16:08→21:59)
[2022-08-27] MEDS: CARTEOLOL 1% OPH SOLN 5 ML BOTTLE BOTH EYES SCH (16:11)
[2022-08-27] MEDS: FLUTICASONE 50 MCG NASAL SPRAY 16 GM BOTTLE BOTH NARES SCH (16:11)
[2022-08-27] MEDS ORDERED: PHENOL 1.4% THROAT SPRAY 177 ML BOTTLE PO PRN (20:50)
[2022-08-27] MEDS: LATANOPROST 0.005% OPH SOLN 2.5 ML BOTTLE BOTH EYES SCH (21:59)
[2022-08-27] MEDS: MONTELUKAST 10 MG TABLET PO SCH (21:59)
[2022-08-28 05:28] LABS: Alanine Aminotransferase 20 U/L (13-56); Alkaline Phosphatase 95 U/L (45-117); Aspartate Amino Transferase 12 U/L (0-37); Bilirubin,Total < 0.39 MG/DL (0.20-1.00); Blood Urea Nitrogen 12 MG/DL (7-18); Carbon Dioxide 26 MMOL/L (21-32); Chloride 113 MMOL/L (98-107); Glucose 102 MG/DL (74-106); Osmolality,Calculated 285.8 MOS/KG (273-304); Potassium 4.1 MMOL/L (3.5-5.1); Sodium 144 MMOL/L (136-145); Total Protein 7.2 G/DL (6.4-8.2)
[2022-08-28 05:36] LABS: Basophils % 0.5 % (0.0-0.8); Eosinophils # 0.3 10*3/uL (0.0-0.87); Eosinophils % 5.6 % (0.00-10.9); Hematocrit 36.7 VOL% (35.7-47.0); Hemoglobin 11.1 GM/DL (12.0-16.0); Immature Granulocytes % 0.4 %; Immature Granulocytes Absolute 0.02 #; Lymphocytes # 1.2 10*3/uL (1.4-4.0); Lymphocytes % 21.1 % (21.3-54.2); Mean Corpuscular HGB Conc 30.2 GM/DL (32-36); Mean Corpuscular Volume 86.2 FL (87-102); Mean Platelet Volume 10.3 FL (9.6-12.0); Monocytes # 0.7 10*3/uL (0.11-0.8); Monocytes % 11.9 % (1.7-12.7); Neutrophils % 60.5 % (38.7-73.9); Platelet Count 282 T/CUMM (130-400); Red Blood Count 4.26 MC/CUMM (3.8-5.5); Red Cell Distribution Width 16.1 % (9.3-17.3); White Blood Count 5.6 T/CUMM (4-12)
[2022-08-28] MEDS: LEVOTHYROXINE 125 MCG TABLET PO SCH (14:00)
[2022-08-28] MEDS: cloNIDine 0.1 MG TABLET PO SCH ×2 (14:15→20:15)
[2022-08-28] MEDS: risperiDONE 0.5 MG TABLET PO SCH ×2 (14:15→20:15)
[2022-08-28] MEDS: PANTOPRAZOLE 40 MG TABLET PO SCH (14:15)
[2022-08-28] MEDS: GABAPENTIN 300 MG CAPSULE PO SCH ×3 (14:15→20:15)
[2022-08-28] MEDS: amLODIPine 10 MG TABLET PO SCH (14:15)
[2022-08-28] MEDS: DOCUSATE SODIUM 100 MG CAPSULE PO PRN (14:15)
[2022-08-28] MEDS: POTASSIUM CHLORIDE 20 MEQ TABLET PO SCH (14:15)
[2022-08-28] MEDS: SERTRALINE 100 MG TABLET PO SCH ×2 (14:15→20:15)
[2022-08-28] MEDS: LINACLOTIDE 145 MCG CAPSULE PO SCH (14:16)
[2022-08-28] MEDS: FLUTICASONE 50 MCG NASAL SPRAY 16 GM BOTTLE BOTH NARES SCH (14:16)
[2022-08-28] MEDS: CARTEOLOL 1% OPH SOLN 5 ML BOTTLE BOTH EYES SCH (14:17)
[2022-08-28] MEDS: diphenhydrAMINE CAP 25 MG CAPSULE PO PRN (14:30)
[2022-08-28] MEDS ORDERED: diphenhydrAMINE CAP 25 MG CAPSULE PO SCH (16:00)
[2022-08-28] MEDS: LACTATED RINGERS 1,000 ML IV SCH (18:21)
[2022-08-28] MEDS: MONTELUKAST 10 MG TABLET PO SCH (20:15)
[2022-08-28] MEDS: LATANOPROST 0.005% OPH SOLN 2.5 ML BOTTLE BOTH EYES SCH (20:19)
[2022-08-29 05:28] LABS: Basophils % 0.5 % (0.0-0.8); Eosinophils # 0.3 10*3/uL (0.0-0.87); Hematocrit 34.6 VOL% (35.7-47.0); Hemoglobin 10.4 GM/DL (12.0-16.0); Immature Granulocytes % 0.2 %; Immature Granulocytes Absolute 0.01 #; Lymphocytes # 0.9 10*3/uL (1.4-4.0); Lymphocytes % 16.8 % (21.3-54.2); Mean Corpuscular HGB Conc 30.1 GM/DL (32-36); Mean Corpuscular Volume 86.7 FL (87-102); Mean Platelet Volume 10.2 FL (9.6-12.0); Monocytes # 0.6 10*3/uL (0.11-0.8); Monocytes % 10.5 % (1.7-12.7); Platelet Count 275 T/CUMM (130-400); Red Blood Count 3.99 MC/CUMM (3.8-5.5); Red Cell Distribution Width 16.1 % (9.3-17.3); White Blood Count 5.5 T/CUMM (4-12)
[2022-08-29 05:32] LABS: Alanine Aminotransferase 19 U/L (13-56); Albumin 3.1 G/DL (3.4-5.0); Alkaline Phosphatase 92 U/L (45-117); Aspartate Amino Transferase 11 U/L (0-37); Bilirubin,Total < 0.39 MG/DL (0.20-1.00); Blood Urea Nitrogen 15 MG/DL (7-18); Calcium 8.9 MG/DL (8.5-10.1); Carbon Dioxide 27 MMOL/L (21-32); Chloride 109 MMOL/L (98-107); Glucose 112 MG/DL (74-106); Osmolality,Calculated 282.3 MOS/KG (273-304); Potassium 3.8 MMOL/L (3.5-5.1); Sodium 141 MMOL/L (136-145)
[2022-08-29] MEDS: LEVOTHYROXINE 125 MCG TABLET PO SCH (06:44)
[2022-08-29] MEDS: diphenhydrAMINE CAP 25 MG CAPSULE PO PRN (09:19)
[2022-08-29] MEDS: cloNIDine 0.1 MG TABLET PO SCH (09:20)
[2022-08-29] MEDS: PANTOPRAZOLE 40 MG TABLET PO SCH (09:20)
[2022-08-29] MEDS: GABAPENTIN 300 MG CAPSULE PO SCH ×2 (09:20→14:46)
[2022-08-29] MEDS: POTASSIUM CHLORIDE 20 MEQ TABLET PO SCH (09:20)
[2022-08-29] MEDS: SERTRALINE 100 MG TABLET PO SCH (09:21)
[2022-08-29] MEDS: LINACLOTIDE 145 MCG CAPSULE PO SCH (09:21)
[2022-08-29] MEDS: risperiDONE 0.5 MG TABLET PO SCH (09:21)
[2022-08-29] MEDS: amLODIPine 10 MG TABLET PO SCH (09:21)
[2022-08-29] MEDS: CARTEOLOL 1% OPH SOLN 5 ML BOTTLE BOTH EYES SCH (09:23)
[2022-08-29] MEDS: FLUTICASONE 50 MCG NASAL SPRAY 16 GM BOTTLE BOTH NARES SCH (09:24)
[2022-08-29 11:59] VITALS: BP 135/83
[2022-08-29 11:59] LABS: Folate 12.02 NG/ML (5.38-24.0)
== END 2022-08-29 16:56 | disposition home health service (06) | DRG 439 ==
LOC: EDUNIT# → N.ED 06:23 → N.EDINP 06:23 → N.2W 11:52 → SUATTDRO 08-25 10:13 → N.5E 08-27 01:04
PROVIDERS: ADMIT Family Medicine; ATTEND Internal Medicine